=== PATIENT | male | born 1950 | race Caucasian/White ===

== ENCOUNTER 2018-05-06 17:06 | Inpatient (IN) | payer OTHER ==
[2018-05-06] MEDS ORDERED: SODIUM CHLORIDE 0.9% 500 ML 500 ML IV STA (17:24)
[2018-05-06] MEDS ORDERED: PANTOPRAZOLE 40 MG/10 ML VIAL IVP STA (17:24)
--- NOTE | 2018-05-06 17:27 | ED ---
General Adult HPI - General Chief complaint: Dizziness Stated complaint: Dizziness Time Seen by Provider: 05/06/18 17:10 Source: patient, RN notes reviewed Mode of arrival: EMS Limitations: no limitations - History of Present Illness Initial comments: Patient is a pleasant 67-year-old male presenting to the emergency department with lightheadedness. Patient has had some sweating starting since middle of the night. Patient has had that continued throughout the day. Patient does feel lightheaded. Symptoms are worse with exertion. Patient is only able to walk 10 or 15 feet now. No history of similar symptoms previously. Patient did have the taste of some reflux in his mouth last night that just lasted a short period of time. No chest pain. No abdominal pain. No dyspnea. Patient has been experiencing dark stools for the past 24 hours. Patient does drink a couple of alcoholic cocktails at night. Patient is not on blood thinners. Patient does not take NSAIDs. - Related Data Home Medications Medication Instructions Recorded Confirmed Aspirin [[place] Aspirin EC] 81 mg PO DAILY 05/06/18 05/06/18 Atorvastatin [Lipitor] 20 mg PO HS 05/06/18 05/06/18 Previous Rx's Medication Instructions Recorded Nitroglycerin Sl Tabs [Nitrostat] 0.4 mg SUBLINGUAL Q5M PRN #25 tab 04/15/16 amLODIPine [Norvasc] 5 mg PO DAILY #30 tab 04/15/16 Allergies Allergy/AdvReac Type Severity Reaction Status Date / Time No Known Allergies Allergy Verified 04/13/16 14:04 Review of Systems ROS Statement: Those systems with pertinent positive or pertinent negative responses have been documented in the HPI. ROS Other: All systems not noted in ROS Statement are negative. Constitutional: Denies: fever Eyes: Denies: eye pain ENT: Denies: ear pain Respiratory: Denies: cough, dyspnea Cardiovascular: Denies: chest pain, palpitations Endocrine: Reports: fatigue Gastrointestinal: Reports: melena. Denies: abdominal pain Genitourinary: Denies: dysuria Musculoskeletal: Denies: back pain Skin: Denies: rash Neurological: Denies: weakness Past Medical History Past Medical History: No Reported History, Hyperlipidemia, Hypertension Additional Past Medical History / Comment(s): KIDNEY STONES 20 YEARS AGO History of Any Multi-Drug Resistant Organisms: None Reported Past Surgical History: Adenoidectomy, Heart Catheterization With Stent, Tonsillectomy Additional Past Surgical History / Comment(s): DENTAL IMPLANT, DEVIATED SEPTUM, RT INGUINAL HERNIA Past Anesthesia/Blood Transfusion Reactions: No Reported Reaction Past Psychological History: No Psychological Hx Reported Smoking Status: Former smoker Past Alcohol Use History: Occasional Past Drug Use History: None Reported - Past Family History Mother Family Medical History: Cancer Additional Family Medical History / Comment(s): LEUKEMIA Father Family Medical History: Renal Disease Additional Family Medical History / Comment(s): BOWEL AND BLADDER PROBLEMS General Exam Limitations: no limitations General appearance: alert, in no apparent distress Head exam: Present: atraumatic Eye exam: Present: normal appearance, PERRL ENT exam: Present: normal oropharynx Neck exam: Present: normal inspection Respiratory exam: Present: normal lung sounds bilaterally Cardiovascular Exam: Present: tachycardia Expanded Peripheral pulses: 2+: Radial (R), Radial (L), Posterior Tibialis (R), Posterior Tibialis (L) GI/Abdominal exam: Present: soft. 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 [place] 134. QRS 86. QT to 70. QTc 410. Left axis. Normal QRS. No acute ST change. Medical Decision Making - Medical Decision Making Patient reevaluated and resting comfortably in bed. Patient and family updated on results and plan. Heart rate remains around 30 and patient will receive additional fluid bolus. Case discussed with practitioner Roxanne, covering for Dr. Carney, who will admit for hospital call. GI will be placed on consult. - Lab Data Result diagrams: 05/06/18 17:20 05/06/18 17:20 Lab Results 05/06/18 05/06/18 05/06/18 Range/Units 17:20 17:20 17:20 WBC 9.3 (3.8-10.6) k/uL RBC 3.24 L (4.30-5.90) m/uL Hgb 10.7 L (13.0-17.5) gm/dL Hct 31.9 L (39.0-53.0) % MCV 98.4 (80.0-100.0) fL MCH 33.0 (25.0-35.0) pg MCHC 33.6 (31.0-37.0) g/dL RDW 12.8 (11.5-15.5) % Plt Count 242 (150-450) k/uL Neutrophils % 80 % Lymphocytes % 14 % Monocytes % 4 % Eosinophils % 1 % Basophils % 0 % Neutrophils # 7.5 (1.3-7.7) k/uL Lymphocytes # 1.4 (1.0-4.8) k/uL Monocytes # 0.4 (0-1.0) k/uL Eosinophils # 0.1 (0-0.7) k/uL Basophils # 0.0 (0-0.2) k/uL PT (9.0-12.0) sec INR (<1.2) APTT (22.0-30.0) sec Sodium 142 (137-145) mmol/L Potassium 4.6 (3.5-5.1) mmol/L Chloride 113 H (98-107) mmol/L Carbon Dioxide 22 (22-30) mmol/L Anion Gap 7 mmol/L BUN 67 H (9-20) mg/dL Creatinine 0.71 (0.66-1.25) mg/dL Est GFR (CKD-EPI)AfAm >90 (>60 ml/min/1.73 sqM) Est GFR (CKD-EPI)NonAf >90 (>60 ml/min/1.73 sqM) Glucose 144 H (74-99) mg/dL Calcium 8.7 (8.4-10.2) mg/dL Magnesium 2.1 (1.6-2.3) mg/dL Total Bilirubin 0.9 (0.2-1.3) mg/dL AST 15 L (17-59) U/L ALT 20 L (21-72) U/L Alkaline Phosphatase 38 (38-126) U/L Total Creatine Kinase 40 L (55-170) U/L Total Protein 5.3 L (6.3-8.2) g/dL Albumin 3.0 L (3.5-5.0) g/dL Lipase 96 (23-300) U/L Stool Occult Blood (Negative) 05/06/18 05/06/18 Range/Units 17:20 17:20 WBC (3.8-10.6) k/uL RBC (4.30-5.90) m/uL Hgb (13.0-17.5) gm/dL Hct (39.0-53.0) % MCV (80.0-100.0) fL MCH (25.0-35.0) pg MCHC (31.0-37.0) g/dL RDW (11.5-15.5) % Plt Count (150-450) k/uL Neutrophils % % Lymphocytes % % Monocytes % % Eosinophils % % Basophils % % Neutrophils # (1.3-7.7) k/uL Lymphocytes # (1.0-4.8) k/uL Monocytes # (0-1.0) k/uL Eosinophils # (0-0.7) k/uL Basophils # (0-0.2) k/uL PT 11.3 (9.0-12.0) sec INR 1.1 (<1.2) APTT 20.7 L (22.0-30.0) sec Sodium (137-145) mmol/L Potassium (3.5-5.1) mmol/L Chloride (98-107) mmol/L Carbon Dioxide (22-30) mmol/L Anion Gap mmol/L BUN (9-20) mg/dL Creatinine (0.66-1.25) mg/dL Est GFR (CKD-EPI)AfAm (>60 ml/min/1.73 sqM) Est GFR (CKD-EPI)NonAf (>60 ml/min/1.73 sqM) Glucose (74-99) mg/dL Calcium (8.4-10.2) mg/dL Magnesium (1.6-2.3) mg/dL Total Bilirubin (0.2-1.3) mg/dL AST (17-59) U/L ALT (21-72) U/L Alkaline Phosphatase (38-126) U/L Total Creatine Kinase (55-170) U/L Total Protein (6.3-8.2) g/dL Albumin (3.5-5.0) g/dL Lipase (23-300) U/L Stool Occult Blood Positive (Negative) - Radiology Data Radiology results: image reviewed Disposition Clinical Impression: GI hemorrhage Disposition: ADMITTED IP TO THIS HOSP Is patient prescribed a controlled substance at d/c from ED?: No Referrals: Demetrius Foy DO [Primary Care Provider] - 1-2 days Decision Time: 18:18
[2018-05-06 17:47] LABS: Basophils % (A) 0 %; Eosinophils # (A) 0.1 k/uL (0-0.7); Eosinophils % (A) 1 %; HCT 31.9 % (39.0-53.0); HGB 10.7 gm/dL (13.0-17.5); Lymphocytes # (A) 1.4 k/uL (1.0-4.8); Lymphocytes % (A) 14 %; MCHC 33.6 g/dL (31.0-37.0); MCV 98.4 fL (80.0-100.0); Monocytes # (A) 0.4 k/uL (0-1.0); Monocytes % (A) 4 %; Neutrophils # (A) 7.5 k/uL (1.3-7.7); Neutrophils % (A) 80 %; Platelet Count 242 k/uL (150-450); RBC 3.24 m/uL (4.30-5.90); RDW 12.8 % (11.5-15.5); WBC 9.3 k/uL (3.8-10.6)
[2018-05-06 18:06] LABS: Creatine Kinase 40 U/L (55-170)
[2018-05-06 18:07] LABS: INR 1.1 (<1.2); Partial Thromboplastin Time 20.7 sec (22.0-30.0); Prothrombin Time 11.3 sec (9.0-12.0)
[2018-05-06 18:09] LABS: ALT 20 U/L (21-72); AST 15 U/L (17-59); Alkaline Phosphatase 38 U/L (38-126); Anion Gap 7 mmol/L; Blood Urea Nitrogen 67 mg/dL (9-20); Calcium 8.7 mg/dL (8.4-10.2); Carbon Dioxide 22 mmol/L (22-30); Chloride 113 mmol/L (98-107); Glucose 144 mg/dL (74-99); Lipase 96 U/L (23-300); Magnesium 2.1 mg/dL (1.6-2.3); Potassium 4.6 mmol/L (3.5-5.1); Sodium 142 mmol/L (137-145); Total Bilirubin 0.9 mg/dL (0.2-1.3); Total Protein 5.3 g/dL (6.3-8.2)
[2018-05-06] MEDS ORDERED: SODIUM CHLORIDE 0.9% 1,000 ML IV STA (18:16)
[2018-05-06 18:18] LABS: Creatine Kinase MB 0.6 ng/mL (0.0-2.4); Troponin I <0.012 ng/mL (0.000-0.034)
[2018-05-06] MEDS ORDERED: NALOXONE 0.4 MG/ML 1 ML VIAL IV PRN (18:18)
--- NOTE | 2018-05-06 18:45 | XR ---
EXAMINATION TYPE: XR abdomen 1V DATE OF EXAM: 05/06/2018 COMPARISON: NONE HISTORY: GI hemorrhage TECHNIQUE: 2 views supine FINDINGS: There is no sign of intestinal obstruction or pneumoperitoneum. Fecal pattern is normal. Th ere is gas down to the rectum. Lung bases are clear. There are no pathologic calcifications over the kidneys. IMPRESSION: Nonacute abdomen.
--- NOTE | 2018-05-06 18:46 | XR ---
EXAMINATION TYPE: XR chest 2V DATE OF EXAM: 05/06/2018 COMPARISON: 04/13/2016 HISTORY: Dizziness TECHNIQUE: Frontal and lateral views of the chest are obtained. FINDINGS: There is no heart failure. There is some mild linear density in the left lower lobe. There are no hilar masses. Mediastinum is normal. There is no pleural effusion. There are chest leads. IMPRESSION: Minimal atelectasis left lower lobe on the lateral view is new compared to old exam.. No rmal heart.
[2018-05-06] MEDS: SODIUM CHLORIDE 0.9% 1,000 ML IV SCH (21:00)
[2018-05-06 21:48] VITALS: BMI 26.3
[2018-05-06] MEDS: PANTOPRAZOLE 40 MG/10 ML VIAL IV SCH (22:02)
[2018-05-06] MEDS: METOPROLOL TARTRATE 25 MG TAB PO SCH (22:02)
[2018-05-06 23:21] LABS: Basophils % (A) 0 %; Eosinophils % (A) 0 %; HCT 26.1 % (39.0-53.0); Lymphocytes # (A) 1.7 k/uL (1.0-4.8); Lymphocytes % (A) 21 %; MCH 32.9 pg (25.0-35.0); MCHC 33.5 g/dL (31.0-37.0); MCV 98.1 fL (80.0-100.0); Mean Platelet Volume 8.8; Monocytes # (A) 0.4 k/uL (0-1.0); Monocytes % (A) 6 %; Neutrophils # (A) 5.6 k/uL (1.3-7.7); Neutrophils % (A) 71 %; Platelet Count 214 k/uL (150-450); RBC 2.66 m/uL (4.30-5.90); RDW 12.9 % (11.5-15.5); WBC 7.9 k/uL (3.8-10.6)
[2018-05-06 23:36] LABS: HGB 8.7 gm/dL (13.0-17.5)
[2018-05-07] MEDS ORDERED: SODIUM CHLORIDE 0.9% 500 ML 500 ML IV ONE (00:13)
[2018-05-07] MEDS ORDERED: LORazepam 2 MG/ML INJ IV PRN ×3 (00:13)
[2018-05-07] MEDS ORDERED: NITROGLYCERIN SL TABS 0.4 MG TAB SUBLINGUAL PRN (00:45)
[2018-05-07] MEDS ORDERED: TEMAZEPAM 15 MG CAP PO PRN (00:47)
[2018-05-07] MEDS ORDERED: HYDROcodone/APAP 5-325MG 1 EACH TAB PO PRN (00:47)
[2018-05-07] MEDS: SODIUM CHLORIDE 0.9% 1,000 ML IV SCH ×3 (02:20→19:49)
[2018-05-07 06:13] LABS: Basophils % (A) 0 %; Eosinophils # (A) 0.1 k/uL (0-0.7); Eosinophils % (A) 1 %; HCT 24.9 % (39.0-53.0); HGB 8.4 gm/dL (13.0-17.5); Lymphocytes # (A) 1.8 k/uL (1.0-4.8); Lymphocytes % (A) 27 %; MCHC 33.8 g/dL (31.0-37.0); MCV 97.6 fL (80.0-100.0); Monocytes # (A) 0.4 k/uL (0-1.0); Monocytes % (A) 6 %; Neutrophils # (A) 4.4 k/uL (1.3-7.7); Neutrophils % (A) 65 %; Platelet Count 203 k/uL (150-450); RBC 2.55 m/uL (4.30-5.90); RDW 13.2 % (11.5-15.5); WBC 6.9 k/uL (3.8-10.6)
[2018-05-07] MEDS: PANTOPRAZOLE 40 MG/10 ML VIAL IV SCH ×2 (08:24→19:50)
[2018-05-07] MEDS: METOPROLOL TARTRATE 25 MG TAB PO SCH ×2 (08:24→19:50)
--- NOTE | 2018-05-07 09:21 | HP ---
HISTORY AND PHYSICAL DATE OF SERVICE: 05/07/2019 CHIEF COMPLAINT: Dizziness and weakness. HISTORY OF PRESENT ILLNESS: This 67-year-old gentleman with a past medical history of multiple medical problems including hypertension, history of kidney stones, history of CAD and stent being followed by Dr. May in the outpatient setting, also has history of having a couple of cocktails at night. Currently the patient is complaining of progressive dizziness and weakness. The patient came to [facility] and was admitted for further evaluation treatment. Melenic stools also noted. Hemoglobin on admission was 7.7 and currently is 8.7. Patient is also mildly orthostatic also. There is no history of fever, rigors. No headache, loss of consciousness, seizures. Patient also had tachycardia which has subsided at this time. Gastroenterology evaluation in progress and endoscopies have been ordered by Dr. Cobb. There is no history of chest pain, palpitation, shortness of breath. PAST MEDICAL HISTORY: Hypertension, hyperlipidemia, history of kidney stones, history of CAD and stent, dental implant. HOME MEDICATIONS: 1. Norvasc 5 mg daily. 2. Nitrostat 0.4 mg p.r.n. 3. Lipitor 20 mg. 4. Aspirin 81 mg daily. ALLERGIES: None. FAMILY HISTORY: History of cancer, leukemia. SOCIAL HISTORY: Previous history of smoking, alcohol as mentioned. REVIEW OF SYSTEMS: ENT No history of diminished hearing or vision. CARDIOVASCULAR No angina or palpitations. RESPIRATORY No cough, no hemoptysis. GI As mentioned earlier. No dysuria. NERVOUS No numbness or weakness. ALLERGY/IMMUNOLOGY No asthma or hayfever. MUSCULOSKELETAL As mentioned earlier. HEMATOLOGY/ONCOLOGY Negative. ENDOCRINE No history of diabetes or hypothyroidism. SKIN Negative. CONSTITUTIONAL As mentioned earlier. PSYCHIATRIC As mentioned earlier. PHYSICAL EXAMINATION: GENERAL Patient is alert and oriented times three. VITAL SIGNS Pulse is 140, blood pressure 130/61, respirations 18, temperature 97.3, pulse ox 97% on room air. HEENT Conjunctivae pale. Oral mucosa moist. NECK No jugular venous distention. No lymph node enlargement. RESPIRATORY Breath sounds diminished at the bases. No rhonchi, no crackles. HEART S1 and S2, muffled. No S3, S4. ABDOMEN Soft, no tenderness. No mass palpable. No hepatosplenomegaly. No ascites. Bowel sounds present. No guarding, no rigidity. EXTREMITIES No edema, no swelling. NERVOUS Higher functions as mentioned earlier. Moves all 4 limbs. No focal motor or sensory deficit. LYMPHATICS No lymph nodes in neck or axilla. SKIN No ulcer, rash, bleeding. JOINTS No active deformity. LABS: WBC 9.2, hemoglobin 10.7, and 8.7. INR 1.1. Otherwise BUN is 67. Glucose is 144. Albumin is 3. ASSESSMENT: 1. Possible acute upper gastrointestinal bleeding with acute blood loss anemia. Rule out peptic ulcer disease. 2. Hypertension. 3. Hyperlipidemia. 4. Nephrolithiasis. 5. History of CAD and stent. 6. History of MRSA. 7. Nicotine dependence. RECOMMENDATIONS AND DISCUSSION: In this 67-year-old gentleman who presented with multiple complex medical issues, we will monitor the patient closely, continue the current management and symptomatic treatment. I recommend proton pump inhibitors, gastroenterology consultation, serial H and H. If the hemoglobin is less than 8, I would recommend 2 units transfusion. The patient is mildly orthostatic and at this point I would recommend fluid bolus and if the patient is not improving and hemoglobin keeps dropping and there is no evidence of further bleeding, the patient will need to be transferred to ICU with consultation with Dr. Branham. Otherwise, will closely follow with Dr. Cobb, the lining vamper and continue the rest of medications. Cardiology also will be consulted because history of CAD, stent. Overall prognosis is guarded and CIWA protocol also will be recommended and further recommendations to follow. We will hold off aspirin at this time. MMODL / IJN: [id number] /
[2018-05-07] MEDS: THIAMINE 100 MG TAB PO SCH ×2 (12:25→17:42)
--- NOTE | 2018-05-07 14:07 | P.CRDCN ---
History of Present Illness History of present illness: This is Dr. Doherty dictating a consult on this patient The patient was interviewed and examined by me IMPRESSION / ASSESSMENT: Acute GI bleeding with melena Presenting with sweating spells at night while lying down and upon standing up lightheadedness but no true loss of consciousness sofar Hemoglobin 8.4 Twelve-lead ECG shows sinus tachycardia No chest discomfort regular , daily alcohol consumption PLAN: Management of acute anemia secondary to GI bleeding which resolved his symptoms Daily alcohol consumption is to be avoided, binge alcohol drinking is to be avoided HPI 67-year-old male patient presenting with recurrent lightheadedness He's been experiencing dark stools for the last 24 hours. Takes aspirin atorvastatin and amlodipine Past history of hypertension dyslipidemia Past history of coronary angiography with coronary stenting ROS: No fever chills or rigors, no cough, phlegm or expectoration, no nausea, vomiting or diarrhea, no hematuria, dysuria, no musculoskeletal complaints, no strokes or seizures, no skin lesions. EXAMINATION Blood pressures in the normal range Heart sounds are normal no murmurs or gallop. Breath sounds are clear no rhonchi no crackles Abdomen is soft there's no epigastric tenderness Extended is warm no edema REVIEW OF LABS, ECG Twelve-lead ECG shows supraventricular tachycardia possible sinus tachycardia possible atrial tachycardia Hemoglobin 10.7 and then subsequently 8.7 and 8.4 Sodium and potassium are normal Normal troponins Past Medical History Past Medical History: Hyperlipidemia, Hypertension Additional Past Medical History / Comment(s): KIDNEY STONES 20 YEARS AGO History of Any Multi-Drug Resistant Organisms: None Reported Past Surgical History: Adenoidectomy, Heart Catheterization With Stent, Tonsillectomy Additional Past Surgical History / Comment(s): DENTAL IMPLANT, DEVIATED SEPTUM, RT INGUINAL HERNIA Past Anesthesia/Blood Transfusion Reactions: No Reported Reaction Date of Last Stent Placement:: 04/2016 Past Psychological History: No Psychological Hx Reported Additional Psychological History / Comment(s): HE IS RETIRED FROM [employer] AND HAS IN THE PAST WORKED IN [employer] WELL. NO EXPERINCE.PT IS INDEPENDANT WHEN UP. Smoking Status: Former smoker Past Alcohol Use History: Daily Additional Past Alcohol Use History / Comment(s): SMOKED OFF AND ON IN HIS 20'S THEN QUIT. INHIS MID 40'S OCC SMOKED SMALL CIGARS THEN QUIT. PT STATED HE HAS 2 COKTAILS DAILY. Past Drug Use History: None Reported - Past Family History Mother Family Medical History: Cancer Additional Family Medical History / Comment(s): LEUKEMIA Father Family Medical History: Renal Disease Additional Family Medical History / Comment(s): BOWEL AND BLADDER PROBLEMS Medications and Allergies Home Medications Medication Instructions Recorded Confirmed Type Nitroglycerin Sl Tabs [Nitrostat] 0.4 mg SUBLINGUAL Q5M PRN #25 tab 04/15/16 Rx amLODIPine [Norvasc] 5 mg PO DAILY #30 tab 04/15/16 05/06/18 Rx Aspirin [[place] Aspirin EC] 81 mg PO DAILY 05/06/18 05/06/18 History Atorvastatin [Lipitor] 20 mg PO HS 05/06/18 05/06/18 History Allergies Allergy/AdvReac Type Severity Reaction Status Date / Time No Known Allergies Allergy Verified 04/13/16 14:04 Physical Exam Vitals: Vital Signs Temp Pulse Pulse Pulse Resp BP BP 05/07/18 03:40 98.0 F 94 18 05/07/18 00:00 98.2 F 80 18 114/76 05/06/18 21:42 97.3 F L 140 H 18 05/06/18 21:10 97.3 F L 140 H 18 05/06/18 21:01 137 H 18 124/82 05/06/18 20:48 98.7 F 134 H 20 127/86 05/06/18 19:50 98.7 F 126 H 18 144/72 05/06/18 19:00 125 H 22 113/75 05/06/18 18:00 130 H 18 113/79 05/06/18 17:46 137 H 05/06/18 17:35 141 H 18 103/75 05/06/18 17:08 98.2 F 137 H 18 119/84 BP BP BP Pulse Ox 05/07/18 03:40 111/86 99 05/07/18 00:00 108/70 122/84 97 05/06/18 21:42 131/64 97 05/06/18 21:10 131/64 97 05/06/18 21:01 97 05/06/18 20:48 97 05/06/18 19:50 97 05/06/18 19:00 98 05/06/18 18:00 98 05/06/18 17:46 05/06/18 17:35 95 05/06/18 17:08 98 Intake and Output 05/06/18 05/07/18 05/07/18 22:59 06:59 14:59 Output Total 0 Balance 0 Output: Urine 0 Other: # Voids 0 1 Weight 103.4 kg 104.5 kg Results 05/07/18 05:47 05/06/18 17:20 Cardiac Enzymes 05/06/18 05/06/18 Range/Units 17:20 17:20 AST 15 L (17-59) U/L CK-MB (CK-2) 0.6 (0.0-2.4) ng/mL Troponin I <0.012 (0.000-0.034) ng/mL Coagulation 05/06/18 Range/Units 17:20 PT 11.3 (9.0-12.0) sec APTT 20.7 L (22.0-30.0) sec CBC 05/06/18 05/06/18 05/07/18 Range/Units 17:20 23:01 05:47 WBC 9.3 7.9 6.9 (3.8-10.6) k/uL RBC 3.24 L 2.66 L 2.55 L (4.30-5.90) m/uL Hgb 10.7 L 8.7 L D 8.4 L (13.0-17.5) gm/dL Hct 31.9 L 26.1 L 24.9 L (39.0-53.0) % Plt Count 242 214 203 (150-450) k/uL Comprehensive Metabolic Panel 05/06/18 Range/Units 17:20 Sodium 142 (137-145) mmol/L Potassium 4.6 (3.5-5.1) mmol/L Chloride 113 H (98-107) mmol/L Carbon Dioxide 22 (22-30) mmol/L BUN 67 H (9-20) mg/dL Creatinine 0.71 (0.66-1.25) mg/dL Glucose 144 H (74-99) mg/dL Calcium 8.7 (8.4-10.2) mg/dL AST 15 L (17-59) U/L ALT 20 L (21-72) U/L Alkaline Phosphatase 38 (38-126) U/L Total Protein 5.3 L (6.3-8.2) g/dL Albumin 3.0 L (3.5-5.0) g/dL Current Medications Generic Name Dose Route Start Last Admin Trade Name Freq PRN Reason Stop Dose Admin Hydrocodone Bitart/Acetaminophen 1 each 05/07/18 00:47 [place] 5-325 PO Q6HR PRN Pain Atorvastatin Calcium 20 mg 05/07/18 21:00 Lipitor PO HS NICHOLAS Sodium Chloride 1,000 mls @ 125 mls/hr 05/06/18 18:30 05/07/18 02:20 Saline 0.9% IV Not Given .Q8H NICHOLAS Lorazepam 1 mg 05/07/18 00:13 Ativan IV Q2HR PRN CIWA 8 or 9 Lorazepam 1 mg 05/07/18 00:13 Ativan IV Q1HR PRN CIWA 10 to 15 Lorazepam 2 mg 05/07/18 00:13 Ativan IV 05/09/18 00:13 Q10M PRN CIWA 16 or higher Metoprolol Tartrate 25 mg 05/06/18 21:45 05/07/18 08:24 Lopressor PO 25 mg BID NICHOLAS Administration Naloxone HCl 0.2 mg 05/06/18 18:18 Narcan IV Q2M PRN Opioid Reversal Nitroglycerin 0.4 mg 05/07/18 00:45 Nitrostat SUBLINGUAL Q5M PRN Chest Pain Pantoprazole Sodium 40 mg 05/06/18 21:00 05/07/18 08:24 Protonix IV 40 mg BID NICHOLAS Administration Temazepam 15 mg 05/07/18 00:47 Restoril PO HS PRN Insomnia Thiamine HCl 100 mg 05/07/18 12:00 Vitamin B-1 PO BID@1200,1700 NICHOLAS Intake and Output 05/06/18 05/07/18 05/07/18 22:59 06:59 14:59 Output Total 0 Balance 0 Output: Urine 0 Other: # Voids 0 1 Weight 103.4 kg 104.5 kg 05/07/18 05:47 05/06/18 17:20
[2018-05-07 14:42] LABS: Basophils % (A) 0 %; Eosinophils # (A) 0.1 k/uL (0-0.7); Eosinophils % (A) 1 %; HCT 26.1 % (39.0-53.0); HGB 8.7 gm/dL (13.0-17.5); Lymphocytes # (A) 2.6 k/uL (1.0-4.8); Lymphocytes % (A) 27 %; MCH 33.1 pg (25.0-35.0); MCHC 33.2 g/dL (31.0-37.0); MCV 99.6 fL (80.0-100.0); Mean Platelet Volume 7.7; Monocytes # (A) 0.4 k/uL (0-1.0); Monocytes % (A) 4 %; Neutrophils # (A) 6.3 k/uL (1.3-7.7); Neutrophils % (A) 66 %; Platelet Count 232 k/uL (150-450); RBC 2.63 m/uL (4.30-5.90); RDW 13.2 % (11.5-15.5); WBC 9.5 k/uL (3.8-10.6)
[2018-05-07] MEDS ORDERED: LORazepam 2 MG/ML INJ IV STA (14:52)
--- NOTE | 2018-05-07 17:39 | PN ---
PROGRESS NOTE DATE OF SERVICE: 05/07/2018 This 67-year-old gentleman who was admitted with upper GI bleeding, acute blood loss anemia, is being closely monitored. Patient still has complaints of dizziness. The patient is orthostatic drop in systolic blood pressure. The patient was seen by Gastroenterology apparently and endoscopies are being planned. Cardiology has seen the patient. The patient also has significant history of EtOH. The patient also is tremulous. The patient also had early delirium tremens also. PAST MEDICAL HISTORY: Reviewed. REVIEW OF SYSTEMS: Cardio system: As mentioned earlier. GI: As mentioned earlier. no dysuria. Nervous System: As mentioned earlier. CURRENT MEDICATIONS: 1. [place] 5 mg. 2. Lipitor 20 mg. 3. Ativan 1 mg. 4. Lopressor 25 mg p.o. b.i.d. 5. Narcan. 6. Nitrostat 0.4 sublingual p.r.n. 7. Protonix 40 mg IV b.i.d. 8. Restoril 15 mg q.h.s. p.r.n. 9. Vitamin B1 100 mg p.o. b.i.d. PHYSICAL EXAM: Patient is alert, oriented x3, pulse 86, blood pressure 140/70 and falling to 112/76, respiration 18, temperature 97.4, pulse ox 98% on room air. HEENT: Conjunctivae normal. Oral mucosa moist. NECK is no jugular venous distention. No carotid bruit. No lymph node enlargement. CARDIOVASCULAR: S1, S2 muffled. RESPIRATORY: Breath sounds diminished in the bases. Scattered rhonchi and crackles. ABDOMEN: Soft, nontender. No mass palpable. LEGS: No edema. NERVOUS SYSTEM: Higher functions as mentioned earlier. Moves all four extremities. No focal deficits. Lymphatics: No lymph nodes palpable in the neck, axillae or groin. SKIN: No ulcer. No rash. No bleeding. LABS: WBC 7.2, hemoglobin is 8.7. ASSESSMENT: 1. Acute upper gastrointestinal bleeding with acute blood loss anemia rule out peptic ulcer disease or esophageal varices. 2. Hypotension. 3. Orthostatic hypotension. 4. Hyperlipidemia. 5. Nephrolithiasis. 6. History of coronary artery disease stent. 7. History of MRSA. 8. History of nicotine dependence. 9. History of ETOH. 10.Possible early delirium tremens. RECOMMENDATIONS AND DISCUSSION: Recommend to continue current medications. Continue to monitor. Symptomatic treatment. Repeat labs. Continue with CIWA protocol. Monitor blood pressure closely. Continue with beta blockers. Possibly upper endoscopy by Gastroenterology. Otherwise, closely follow with Cardiology. Prognosis guarded because of multiple complex medical issues. I would also recommend fluid boluses for the orthostatic hypotension. MMODL / IJN: [id number] / MTDD
[2018-05-07] MEDS: SODIUM CHLORIDE 0.9% 250 ML IV SCH ×5 (17:50→23:38)
--- NOTE | 2018-05-07 19:41 | P.CONS ---
History of Present Illness - Reason for Consult Consult date: 05/07/18 GI hemorrhage Requesting physician: Lexi Carney - Chief Complaint Lightheadedness - History of Present Illness 67-year-old male with a medical history significant for coronary artery disease status post stent placement in the past and hypertension who presented to the hospital with complaints of lightheadedness. Per the patient he had been feeling lightheaded, weak and fatigued. He also reported that he had had 3-4 dark black bowel movements prior to presentation. He denies any gross blood per rectum. No prior history of peptic ulcer disease or GI bleeding. He does not take a proton pump inhibitor at home. He reports very occasional reflux described as a burning sensation and belching from his chest. He does feel however that this has become more frequent over the past 6 months although being very intermittent. He denies any use of NSAID medications. He denies any previous EGD or colonoscopy. He denies any abdominal pain. On presentation the patient was found to be anemic with a hemoglobin of 10.7 which subsequently fell to 8.7 and was stable. Review of Systems REVIEW OF SYSTEMS: CARDIO: Denies any chest pain or palpitations. PULMONARY: The patient denied any wheezing but did report shortness of breath, worse with exertion. GENITOURINARY: No dysuria or hematuria. MUSCULOSKELETAL: The patient did report feeling weak and fatigued. SKIN: Denies any new rashes or lesions, jaundice or pallor. PSYCHIATRIC: Denies any depression or anxiety. NEUROLOGY: Denies headache, denies any new focal deficits. EARS: No tinnitus, discharge or new hearing loss. NOSE: No discharge or congestion. EYES: No pain in eyes or change in vision. CONSTITUTIONAL: No recent weight loss. No fever, chills, night sweats. Past Medical History Past Medical History: Hyperlipidemia, Hypertension Additional Past Medical History / Comment(s): KIDNEY STONES 20 YEARS AGO History of Any Multi-Drug Resistant Organisms: None Reported Past Surgical History: Adenoidectomy, Heart Catheterization With Stent, Tonsillectomy Additional Past Surgical History / Comment(s): DENTAL IMPLANT, DEVIATED SEPTUM, RT INGUINAL HERNIA Past Anesthesia/Blood Transfusion Reactions: No Reported Reaction Date of Last Stent Placement:: 04/2016 Past Psychological History: No Psychological Hx Reported Additional Psychological History / Comment(s): HE IS RETIRED FROM [employer] AND HAS IN THE PAST WORKED IN [employer]LL. NO EXPERINCE.PT IS INDEPENDANT WHEN UP. Smoking Status: Former smoker Past Alcohol Use History: Daily Additional Past Alcohol Use History / Comment(s): SMOKED OFF AND ON IN HIS 20'S THEN QUIT. INHIS MID 40'S OCC SMOKED SMALL CIGARS THEN QUIT. PT STATED HE HAS 2 COKTAILS DAILY. Past Drug Use History: None Reported - Past Family History Mother Family Medical History: Cancer Additional Family Medical History / Comment(s): LEUKEMIA Father Family Medical History: Renal Disease Additional Family Medical History / Comment(s): BOWEL AND BLADDER PROBLEMS Medications and Allergies Home Medications Medication Instructions Recorded Confirmed Type Nitroglycerin Sl Tabs [Nitrostat] 0.4 mg SUBLINGUAL Q5M PRN #25 tab 04/15/16 Rx amLODIPine [Norvasc] 5 mg PO DAILY #30 tab 04/15/16 05/06/18 Rx Aspirin [[facility]] 81 mg PO DAILY 05/06/18 05/06/18 History Atorvastatin [Lipitor] 20 mg PO HS 05/06/18 05/06/18 History Allergies Allergy/AdvReac Type Severity Reaction Status Date / Time No Known Allergies Allergy Verified 04/13/16 14:04 Physical Exam Vitals: Vital Signs Temp Pulse Pulse Resp BP BP BP 05/07/18 15:51 18 146/70 112/76 05/07/18 15:32 86 18 05/07/18 12:00 97.4 F L 86 18 05/07/18 08:00 97.3 F L 80 18 05/07/18 03:40 98.0 F 94 18 05/07/18 00:00 98.2 F 80 18 114/76 108/70 05/06/18 21:42 97.3 F L 140 H 18 05/06/18 21:10 97.3 F L 140 H 18 05/06/18 21:01 137 H 18 124/82 05/06/18 20:48 98.7 F 134 H 20 127/86 05/06/18 19:50 98.7 F 126 H 18 144/72 BP BP Pulse Ox 05/07/18 15:51 128/76 98 05/07/18 15:32 05/07/18 12:00 127/80 98 05/07/18 08:00 126/78 98 05/07/18 03:40 111/86 99 05/07/18 00:00 122/84 97 05/06/18 21:42 131/64 97 05/06/18 21:10 131/64 97 05/06/18 21:01 97 05/06/18 20:48 97 05/06/18 19:50 97 Intake and Output 05/07/18 05/07/18 05/07/18 06:59 14:59 22:59 Intake Total 0 240 Output Total 600 Balance -600 240 Intake: Oral 0 240 Output: Urine 600 Other: # Voids 1 Weight 104.5 kg On physical examination, patient appears comfortable in no apparent distress. HEAD: Normocephalic, atraumatic. EYES: No scleral icterus. No conjunctival injection. MOUTH: No lesions, tongue midline. NECK: Trachea midline, no gross abnormalities. CHEST: Clear to auscultation with no wheezing or rhonchi appreciated. HEART: Regular rate and rhythm. ABDOMEN: Soft, obese. Bowel sounds are positive. No organomegaly. No guarding or rigidity. EXTREMITIES: No pedal edema. SKIN: No rashes, no jaundice. NEUROLOGIC: Alert and oriented x3. No focal deficits. Results CBC & Chem 7: 05/07/18 14:32 05/06/18 17:20 Labs: Abnormal Lab Results - Last 24 Hours (Table) 05/06/18 05/07/18 05/07/18 Range/Units 23:01 05:47 14:32 RBC 2.66 L 2.55 L 2.63 L (4.30-5.90) m/uL Hgb 8.7 L D 8.4 L 8.7 L (13.0-17.5) gm/dL Hct 26.1 L 24.9 L 26.1 L (39.0-53.0) % Abdominal x-ray: report reviewed (X-ray abdomen significant for nonacute abdomen.) Assessment and Plan (1) GI hemorrhage Narrative/Plan: Vision presenting with complaints of 3-4 episodes of dark black bowel movements with associated fall in hemoglobin, suspicion is for upper GI hemorrhage with differential including peptic ulcer disease, leading AVM, erosive gastritis/ esophagitis or other etiology. Current Visit: Yes Status: Acute Code(s): K92.2 - GASTROINTESTINAL HEMORRHAGE, UNSPECIFIED SNOMED Code(s): 43460642 (2) Anemia, blood loss Current Visit: Yes Status: Acute Code(s): D50.0 - IRON DEFICIENCY ANEMIA SECONDARY TO BLOOD LOSS (CHRONIC) SNOMED Code(s): 986096044 Plan: Supportive care Monitor hemoglobin and transfuse as needed Continue Protonix IV twice a day Okay for diet, nothing by mouth after midnight Plan on upper endoscopy in the morning Patient will need follow-up with gastroenterology to schedule screening colonoscopy Thank you for allowing us to participate in the care of this patient we will continue to follow
[2018-05-07] MEDS: ATORVASTATIN 20 MG TAB PO SCH (19:50)
[2018-05-08 00:29] LABS: Basophils % (A) 0 %; Eosinophils # (A) 0.2 k/uL (0-0.7); Eosinophils % (A) 4 %; HCT 20.4 % (39.0-53.0); Lymphocytes # (A) 1.9 k/uL (1.0-4.8); Lymphocytes % (A) 34 %; MCH 33.3 pg (25.0-35.0); MCHC 33.8 g/dL (31.0-37.0); MCV 98.4 fL (80.0-100.0); Mean Platelet Volume 8.6; Monocytes # (A) 0.3 k/uL (0-1.0); Monocytes % (A) 4 %; Neutrophils # (A) 3.2 k/uL (1.3-7.7); Neutrophils % (A) 56 %; Platelet Count 176 k/uL (150-450); RBC 2.08 m/uL (4.30-5.90); RDW 13.4 % (11.5-15.5); WBC 5.7 k/uL (3.8-10.6)
[2018-05-08 00:41] LABS: HGB 6.9 gm/dL (13.0-17.5)
[2018-05-08] MEDS: SODIUM CHLORIDE 0.9% 1,000 ML IV SCH ×3 (03:38→19:56)
[2018-05-08] MEDS ORDERED: PROPOFOL 10 MG/ML 20 ML VIAL IV ONE (09:45)
[2018-05-08] MEDS ORDERED: LACTATED RINGERS 1,000 ML IV ONE (09:55)
--- NOTE | 2018-05-08 10:25 | P.PCN ---
Date of Procedure: 05/08/18 Description of Procedure: BRIEF HISTORY: 67-year-old male with a medical history significant for coronary artery disease status post stent placement in the past and hypertension who presented to the hospital with complaints of lightheadedness. Per the patient he had been feeling lightheaded, weak and fatigued. He also reported that he had had 3-4 dark black bowel movements prior to presentation. He denies any gross blood per rectum. No prior history of peptic ulcer disease or GI bleeding. He does not take a proton pump inhibitor at home. He reports very occasional reflux described as a burning sensation and belching from his chest. He does feel however that this has become more frequent over the past 6 months although being very intermittent. He denies any use of NSAID medications. He denies any previous EGD or colonoscopy. He denies any abdominal pain. On presentation the patient was found to be anemic with a hemoglobin of 10.7 which subsequently fell to 8.7 and was stable. PROCEDURE PERFORMED: Esophagogastroduodenoscopy with biopsy. PREOPERATIVE DIAGNOSIS: Anemia of acute blood loss, melena. ESTIMATED BLOOD LOSS: Minimal. IV sedation per anesthesia. PROCEDURE: After informed consent was obtained, the patient was brought into the endoscopy unit. IV sedation was administered by Anesthesia under continuous monitoring. Initially the Olympus GIF-190 video endoscope was inserted into the mouth. Esophagus intubated without any difficulty. It was gradually advanced into the stomach and duodenum and carefully examined. The bulb and the second part of the duodenum appeared normal, except for some mild scattered erythema suggestive of duodenitis which was biopsied. The scope at this time was withdrawn to the stomach, adequately insufflated with air, and the mucosa of the antrum, body, cardia and the fundus were examined, with a erythema and superficial erosions in the antrum and body suggestive of moderate gastritis which was biopsied. The scope was then withdrawn into the esophagus. The GE junction was located at 42 cm from the incisors. A 3 cm hiatal hernia was noted. A small nonbleeding ulcer in the distal esophagus was noted possibly suggestive of a Jenniefr-Padron tear with biopsies taken. The esophagus otherwise appeared normal. The patient tolerated the procedure well IMPRESSION: 1. No active bleeding. 2. Mild duodenitis, biopsied. 3. Moderate gastritis, biopsied. 4. Nonbleeding distal esophageal ulcer, biopsied. 5. Hiatal hernia. RECOMMENDATIONS: The findings of this examination were discussed with the patient. Continue Protonix 40 mg by mouth twice daily. Continue to monitor hemoglobin. Okay for diet. Follow up with gastroenterology in one to 2 weeks for scheduling of repeat upper endoscopy given findings on EGD. Await pathology from biopsies. Patient is okay for discharge when hemoglobin stabilizes and symptoms are improved.
[2018-05-08] MEDS: PANTOPRAZOLE 40 MG/10 ML VIAL IV SCH ×2 (10:43→19:56)
[2018-05-08] MEDS: METOPROLOL TARTRATE 25 MG TAB PO SCH ×2 (10:43→19:56)
[2018-05-08 11:15] LABS: Basophils % (A) 0 %; Eosinophils # (A) 0.2 k/uL (0-0.7); Eosinophils % (A) 3 %; HCT 27.2 % (39.0-53.0); Lymphocytes # (A) 1.2 k/uL (1.0-4.8); Lymphocytes % (A) 23 %; MCHC 34.2 g/dL (31.0-37.0); MCV 96.5 fL (80.0-100.0); Mean Platelet Volume 7.5; Monocytes # (A) 0.2 k/uL (0-1.0); Monocytes % (A) 4 %; Neutrophils # (A) 3.7 k/uL (1.3-7.7); Neutrophils % (A) 68 %; Platelet Count 194 k/uL (150-450); RBC 2.82 m/uL (4.30-5.90); WBC 5.4 k/uL (3.8-10.6)
[2018-05-08 11:23] LABS: Anion Gap 1 mmol/L; Blood Urea Nitrogen 16 mg/dL (9-20); Carbon Dioxide 28 mmol/L (22-30); Chloride 112 mmol/L (98-107); Glucose 103 mg/dL (74-99); HGB 9.3 gm/dL (13.0-17.5); Potassium 4.2 mmol/L (3.5-5.1); Sodium 141 mmol/L (137-145)
[2018-05-08] MEDS: THIAMINE 100 MG TAB PO SCH ×2 (17:50→18:05)
[2018-05-08 17:51] LABS: Basophils % (A) 0 %; Eosinophils # (A) 0.2 k/uL (0-0.7); Eosinophils % (A) 4 %; HCT 25.1 % (39.0-53.0); HGB 8.6 gm/dL (13.0-17.5); Lymphocytes # (A) 1.6 k/uL (1.0-4.8); Lymphocytes % (A) 27 %; MCHC 34.3 g/dL (31.0-37.0); MCV 96.1 fL (80.0-100.0); Mean Platelet Volume 7.7; Monocytes # (A) 0.4 k/uL (0-1.0); Monocytes % (A) 7 %; Neutrophils # (A) 3.9 k/uL (1.3-7.7); Neutrophils % (A) 62 %; Platelet Count 196 k/uL (150-450); RBC 2.61 m/uL (4.30-5.90); RDW 14.1 % (11.5-15.5); WBC 6.2 k/uL (3.8-10.6)
[2018-05-08] MEDS: ATORVASTATIN 20 MG TAB PO SCH (19:56)
[2018-05-08 23:49] LABS: Basophils % (A) 0 %; Eosinophils # (A) 0.3 k/uL (0-0.7); Eosinophils % (A) 5 %; HCT 23.5 % (39.0-53.0); HGB 7.9 gm/dL (13.0-17.5); Lymphocytes # (A) 1.9 k/uL (1.0-4.8); Lymphocytes % (A) 33 %; MCH 32.3 pg (25.0-35.0); MCHC 33.5 g/dL (31.0-37.0); MCV 96.5 fL (80.0-100.0); Mean Platelet Volume 7.8; Monocytes # (A) 0.3 k/uL (0-1.0); Monocytes % (A) 5 %; Neutrophils # (A) 3.2 k/uL (1.3-7.7); Neutrophils % (A) 56 %; Platelet Count 175 k/uL (150-450); RBC 2.44 m/uL (4.30-5.90); RDW 14.3 % (11.5-15.5); WBC 5.7 k/uL (3.8-10.6)
[2018-05-09] MEDS: SODIUM CHLORIDE 0.9% 1,000 ML IV SCH ×2 (04:23→11:37)
[2018-05-09 06:49] LABS: Basophils % (A) 0 %; Eosinophils # (A) 0.3 k/uL (0-0.7); Eosinophils % (A) 5 %; HCT 26.7 % (39.0-53.0); HGB 8.9 gm/dL (13.0-17.5); Lymphocytes # (A) 1.4 k/uL (1.0-4.8); Lymphocytes % (A) 26 %; MCHC 33.5 g/dL (31.0-37.0); MCV 98.4 fL (80.0-100.0); Mean Platelet Volume 7.9; Monocytes # (A) 0.2 k/uL (0-1.0); Monocytes % (A) 4 %; Neutrophils # (A) 3.4 k/uL (1.3-7.7); Neutrophils % (A) 63 %; Platelet Count 206 k/uL (150-450); RBC 2.71 m/uL (4.30-5.90); RDW 14.3 % (11.5-15.5); WBC 5.5 k/uL (3.8-10.6)
[2018-05-09 07:10] LABS: Anion Gap 3 mmol/L; Blood Urea Nitrogen 10 mg/dL (9-20); Calcium 8.3 mg/dL (8.4-10.2); Carbon Dioxide 29 mmol/L (22-30); Chloride 109 mmol/L (98-107); Glucose 100 mg/dL (74-99); Potassium 4.4 mmol/L (3.5-5.1); Sodium 141 mmol/L (137-145)
[2018-05-09 09:04] VITALS: TEMP 98.1
[2018-05-09] MEDS: METOPROLOL TARTRATE 25 MG TAB PO SCH (09:05)
[2018-05-09] MEDS: PANTOPRAZOLE 40 MG/10 ML VIAL IV SCH (09:05)
[2018-05-09] MEDS: THIAMINE 100 MG TAB PO SCH (11:35)
[2018-05-09 13:08] VITALS: BP 123/72; PULSE 65; RESP 18
[2018-05-09 13:16] LABS: Basophils % (A) 0 %; Eosinophils # (A) 0.2 k/uL (0-0.7); Eosinophils % (A) 3 %; HCT 27.3 % (39.0-53.0); Lymphocytes # (A) 1.6 k/uL (1.0-4.8); Lymphocytes % (A) 29 %; MCH 32.4 pg (25.0-35.0); MCHC 32.9 g/dL (31.0-37.0); MCV 98.5 fL (80.0-100.0); Mean Platelet Volume 7.4; Monocytes # (A) 0.3 k/uL (0-1.0); Monocytes % (A) 5 %; Neutrophils # (A) 3.3 k/uL (1.3-7.7); Neutrophils % (A) 61 %; Platelet Count 218 k/uL (150-450); RBC 2.77 m/uL (4.30-5.90); RDW 14.7 % (11.5-15.5); WBC 5.4 k/uL (3.8-10.6)
--- NOTE | 2018-05-10 08:30 | DS ---
DISCHARGE SUMMARY DATE OF SERVICE: 05/09/2018 FINAL DIAGNOSES: 1. Acute upper gastrointestinal bleeding with acute blood loss anemia possibly secondary to distal esophageal ulcer. 2. Mild gastritis and duodenitis. 3. Hiatal hernia. 4. Orthostatic hypotension, improved. 5. Hyperlipidemia. 6. Nephrolithiasis. 7. History of coronary artery disease, stent. 8. History of methicillin-resistant Staphylococcus aureus. 9. History of nicotine dependence. 10.History of EtOH. 11.Possibly early delirium tremens. DISCHARGE DISPOSITION: The patient will be discharged in stable condition with guarded prognosis. HISTORY OF PRESENT ILLNESS: This 67-year-old gentleman with the past medical history of multiple medical problems admitted with acute upper GI bleeding. The patient monitor closely. The patient improved significantly. EGD done by Dr. Osman showed multiple findings as listed above. Please refer to Dr. Osman's notes for further details. With the symptomatic treatment, patient was significantly and currently the hemoglobin is 9 and stable. The patient able to tolerate diet. On exam, vitals are stable. CARDIOVASCULAR: S1, S2, muffled. ABDOMEN: Soft. NERVOUS SYSTEM: No focal deficits. DISCHARGE ADVICE: 1. Diet is cardiac diet. 2. Activity limited until followup. 3. Follow up with Dr. Demetrius Dillon in 2 to 3 days. 4. Follow up with Dr. Osman as advised. 5. No NSAIDs. 6. No alcohol. Medications are: 1. Lipitor 20 mg at bedtime. 2. Lopressor 25 mg p.o. b.i.d. 3. Nitroglycerin 0.4 mg sublingual p.r.n. 4. Protonix 40 mg p.o. b.i.d. 5. Carafate 1 gram q.a.c. and at bedtime. 6. Thiamine 100 mg p.o. daily. Once again, the patient will be discharged in a stable condition with guarded prognosis. MMODL / IJN: [id number] /
--- NOTE | 2018-05-10 20:48 | P.PN ---
Subjective Progress Note Date: 05/08/18 Progress note being dictated for Dr. Carney. Interval history: This a 67-year-old gentleman admitted with possible acute upper GI bleed with acute blood loss anemia, ruling out peptic ulcer disease and multiple other medical issues. Hemoglobin 7.9. Aspirin currently on hold. Received fluid bolus for mild orthostatic hypotension yesterday. Black stools earlier this morning. Evaluated by GI, underwent EGD, reporting no active bleeding, mild duodenitis, moderate gastritis, nonbleeding distal esophageal ulcer, hiatal hernia. Tolerating clear liquids with no nausea vomiting or diarrhea. Denies chest pain, palpitations or increasing shortness of breath. Objective - Vital Signs Vital signs: Vital Signs Temp 98.0 F 05/08/18 16:00 Pulse 84 05/08/18 16:00 Resp 16 05/08/18 16:00 BP 145/75 05/08/18 16:00 Pulse Ox 97 05/08/18 16:00 Intake & Output 05/08/18 05/08/18 05/09/18 06:59 18:59 06:59 Intake Total 935 1010 Output Total 250 Balance 935 760 Weight 107 kg Intake: IV 300 Intake, IV Titration 625 Amount Sodium Chloride 0.9% 1, 625 000 ml @ 125 mls/hr IV . Q8H [facility] Rx#:[id number] Oral 400 Blood Product 310 310 Rc As-1 Unit 310 [id number] Rc Pheresis 2 As3 Unit 0 310 [id number] Output: Urine 250 Other: # Voids 1 - Exam PHYSICAL EXAM: VITAL SIGNS: As above GENERAL: Sitting up in bed, no acute distress HEENT: Conjunctivae normal. eyes normal. Oral mucosa moist NECK: No JVD. No thyroid enlargement. No LNs CARDIOVASCULAR: S1, S2 muffled. No murmur RESPIRATION: Breath sounds diminished in the bases. No rhonchi or crackles. ABDOMEN: Soft, nontender . No guarding. no masses palpable. Bowel sounds heard. LEGS: No edema. no swelling PSYCHIATRY: Alert and oriented -3, mood and affect normal. NERVOUS SYSTEM: Cranial N 2-12 grossly normal. Moves all 4 limbs. Diffuse weakness No focal deficits. - Labs CBC & Chem 7: 05/09/18 12:35 05/09/18 06:13 Labs: Abnormal Lab Results - Last 24 Hours (Table) 05/06/18 05/08/18 05/08/18 Range/Units 17:20 00:08 10:51 RBC 2.08 L 2.82 L (4.30-5.90) m/uL Hgb 6.9 L* D 9.3 L D (13.0-17.5) gm/dL Hct 20.4 L 27.2 L (39.0-53.0) % Chloride (98-107) mmol/L Creatinine (0.66-1.25) mg/dL Glucose (74-99) mg/dL Calcium (8.4-10.2) mg/dL Crossmatch See Detail 05/08/18 05/08/18 Range/Units 10:51 17:13 RBC 2.61 L (4.30-5.90) m/uL Hgb 8.6 L (13.0-17.5) gm/dL Hct 25.1 L (39.0-53.0) % Chloride 112 H (98-107) mmol/L Creatinine 0.65 L (0.66-1.25) mg/dL Glucose 103 H (74-99) mg/dL Calcium 8.0 L (8.4-10.2) mg/dL Crossmatch Assessment and Plan Assessment: -. Acute upper GI bleed with acute blood loss anemia, possibly secondary to distal esophageal ulcer -Moderate gastritis and mild duodenitis -Hiatal hernia -Orthostatic hypotension, improved -History of EtOH, possible early DTs -.CAD, history of stent -History of nicotine dependence Plan: Continue on current medication regime ,monitoring and symptomatic treatment. Maintain PPI twice a day. Diet advanced as per GI. Monitor closely overnight. Close monitoring of hemoglobin, electrolytes with repeat labs ordered for a.m. discharge planning in progress for tomorrow. The impression and plan of care has been dictated as directed. : I performed a history and examination of this patient, discussed the same with the dictator. I agree with the dictator's note ,documented as a scribe. Any additional findings or plans will be noted.
== END 2018-05-09 16:00 | disposition home or self-care (01) | DRG 381 ==
LOC: EC 17:06 → 3SCARD 18:18
PROVIDERS: ADMIT Hospitalist; ATTEND Hospitalist
PROC: 0DB78ZX Excision of Stomach, Pylorus, Via Natural or Artificial Opening Endoscopic, Diagnostic (ICD-10-PCS; 2018-05-08)
PROC: 0DB58ZX Excision of Esophagus, Via Natural or Artificial Opening Endoscopic, Diagnostic (ICD-10-PCS; 2018-05-08)
PROC: 0DB98ZX Excision of Duodenum, Via Natural or Artificial Opening Endoscopic, Diagnostic (ICD-10-PCS; principal; 2018-05-08 09:30)
DX: K22.11 Ulcer of esophagus with bleeding (principal); D62 Acute posthemorrhagic anemia; F10.231 Alcohol dependence with withdrawal delirium; I47.1 Supraventricular tachycardia; K44.9 Diaphragmatic hernia without obstruction or gangrene; E78.5 Hyperlipidemia, unspecified; Z87.891 Personal history of nicotine dependence; I10 Essential (primary) hypertension; I25.10 Atherosclerotic heart disease of native coronary artery without angina pectoris; I95.1 Orthostatic hypotension; K21.9 Gastro-esophageal reflux disease without esophagitis; K29.70 Gastritis, unspecified, without bleeding; K29.80 Duodenitis without bleeding; Z87.442 Personal history of urinary calculi; Z79.82 Long term (current) use of aspirin; Z79.899 Other long term (current) drug therapy; Z80.6 Family history of leukemia; Z86.14 Personal history of Methicillin resistant Staphylococcus aureus infection; Z95.5 Presence of coronary angioplasty implant and graft; Z83.79 Family history of other diseases of the digestive system
CPT/HCPCS: 36415; 43239; 71046; 74018; 80048; 80053; 82272; 82550; 82553; 83690; 83735; 84484; 85025; 85610; 85730; 86850; 86900; 86901; 86920; 88305; 88312; 96361; 96374; 99285

== ENCOUNTER 2019-01-02 16:31 | Inpatient (IN) | payer MEDICARE, OTHER ==
[2019-01-02] MEDS ORDERED: METOPROLOL TARTRATE 25 MG TAB PO STA ×2 (18:25→20:16)
[2019-01-02] MEDS ORDERED: LABETALOL 5 MG/ML VIAL MDV IVP STA ×2 (18:25→20:16)
--- NOTE | 2019-01-02 18:30 | ED ---
General Adult HPI - General Chief complaint: Recheck/Abnormal Lab/Rx Stated complaint: HYPERTENSION Time Seen by Provider: 01/02/19 17:57 Source: patient, RN notes reviewed Mode of arrival: ambulatory Limitations: no limitations - History of Present Illness Initial comments: Patient is a pleasant 68-year-old male presenting to the emergency department [facility] concerns for hypertension. Patient states he went to [facility] today to fruit or nut picker his prescription and checked his blood pressure. Blood pressure was approximately 230/110. Patient came to the emergency department and blood pressure still was high. Patient is symptom-free at this time. Patient does have history of hypertension, last blood pressure check was around 5 months ago. No recent changes in medications. Patient does admit that he occasionally will feel short of breath and sweaty with exertion. Other times he does not have this problem. No dyspnea or sweating at this time. Patient denies having any chest discomfort. No nausea or vomiting. - Related Data Home Medications Medication Instructions Recorded Confirmed Metoprolol Tartrate [Lopressor] 25 mg PO BID-W/MEALS 01/02/19 01/02/19 Pantoprazole [Protonix] 40 mg PO BID-W/MEALS 01/02/19 01/02/19 Allergies Allergy/AdvReac Type Severity Reaction Status Date / Time No Known Allergies Allergy Verified 01/02/19 17:15 Review of Systems ROS Statement: Those systems with pertinent positive or pertinent negative responses have been documented in the HPI. ROS Other: All systems not noted in ROS Statement are negative. Constitutional: Denies: fever Eyes: Denies: eye pain ENT: Denies: ear pain Respiratory: Reports: as per HPI. Denies: cough Cardiovascular: Denies: chest pain Endocrine: Denies: fatigue Gastrointestinal: Denies: nausea Genitourinary: Denies: dysuria Musculoskeletal: Denies: back pain Skin: Denies: rash Neurological: Denies: headache Past Medical History Past Medical History: Hyperlipidemia, Hypertension Additional Past Medical History / Comment(s): KIDNEY STONES 20 YEARS AGO, bleeding ulcer History of Any Multi-Drug Resistant Organisms: None Reported Past Surgical History: Adenoidectomy, Heart Catheterization With Stent, Tonsillectomy Additional Past Surgical History / Comment(s): DENTAL IMPLANT, DEVIATED SEPTUM, RT INGUINAL HERNIA Past Anesthesia/Blood Transfusion Reactions: No Reported Reaction Date of Last Stent Placement:: 04/2016 Past Psychological History: No Psychological Hx Reported Smoking Status: Former smoker Past Alcohol Use History: Daily Past Drug Use History: None Reported - Past Family History Mother Family Medical History: Cancer Additional Family Medical History / Comment(s): LEUKEMIA Father Family Medical History: Renal Disease Additional Family Medical History / Comment(s): BOWEL AND BLADDER PROBLEMS General Exam Limitations: no limitations General appearance: alert, in no apparent distress Head exam: Present: atraumatic Eye exam: Present: normal appearance, PERRL, EOMI ENT exam: Present: normal oropharynx Neck exam: Present: normal inspection Respiratory exam: Present: normal lung sounds bilaterally. Absent: chest wall tenderness Cardiovascular Exam: Present: regular rate, normal rhythm Expanded Peripheral pulses: 2+: Radial (R), Radial (L), Dorsalis Pedis (R), Dorsalis Pedis (L) GI/Abdominal exam: Present: soft. Absent: tenderness Extremities exam: Present: normal inspection. Absent: pedal edema, calf tenderness Neurological exam: Present: alert, oriented X3. Absent: motor sensory deficit Psychiatric exam: Present: normal affect, normal mood Skin exam: Present: normal color Course Vital Signs 01/02/19 01/02/19 01/02/19 17:11 18:11 19:39 Temperature 97.8 F Pulse Rate 60 62 75 Respiratory 16 17 Rate Blood Pressure 225/137 188/120 178/117 O2 Sat by Pulse 97 95 96 Oximetry EKG Findings - EKG Comments: EKG Findings:: Sinus bradycardia 58. UT 190. QRS 96. QT 422. QTC 414. Left axis. Normal QRS. No acute ST change. Medical Decision Making - Medical Decision Making Patient reevaluated and remained symptom-free. Blood pressure remains high. Additional blood pressure medication order. Patient and family updated on results and plan. Case was discussed in detail with Dr. Rodriguez, who will admit covering for Dr. Dillon. Cardiology will be placed on consult for hypertension as well as exertional dyspnea. - Lab Data Result diagrams: 01/02/19 18:45 01/02/19 18:45 Lab Results 01/02/19 01/02/19 01/02/19 Range/Units 18:45 18:45 18:45 WBC 6.0 (3.8-10.6) k/uL RBC 4.77 (4.30-5.90) m/uL Hgb 15.4 (13.0-17.5) gm/dL Hct 45.9 (39.0-53.0) % MCV 96.2 (80.0-100.0) fL MCH 32.2 (25.0-35.0) pg MCHC 33.4 (31.0-37.0) g/dL RDW 14.1 (11.5-15.5) % Plt Count 229 (150-450) k/uL Neutrophils % 60 % Lymphocytes % 26 % Monocytes % 7 % Eosinophils % 4 % Basophils % 1 % Neutrophils # 3.6 (1.3-7.7) k/uL Lymphocytes # 1.6 (1.0-4.8) k/uL Monocytes # 0.4 (0-1.0) k/uL Eosinophils # 0.3 (0-0.7) k/uL Basophils # 0.0 (0-0.2) k/uL PT 11.1 (9.0-12.0) sec INR 1.0 (<1.2) APTT 25.5 (22.0-30.0) sec Sodium 139 (137-145) mmol/L Potassium 4.1 (3.5-5.1) mmol/L Chloride 104 (98-107) mmol/L Carbon Dioxide 28 (22-30) mmol/L Anion Gap 7 mmol/L BUN 18 (9-20) mg/dL Creatinine 0.85 (0.66-1.25) mg/dL Est GFR (CKD-EPI)AfAm >90 (>60 ml/min/1.73 sqM) Est GFR (CKD-EPI)NonAf >90 (>60 ml/min/1.73 sqM) Glucose 95 (74-99) mg/dL Calcium 9.3 (8.4-10.2) mg/dL Magnesium 2.3 (1.6-2.3) mg/dL Total Bilirubin 1.3 (0.2-1.3) mg/dL AST 26 (17-59) U/L ALT 20 L (21-72) U/L Alkaline Phosphatase 71 (38-126) U/L Creatine Kinase 89 (55-170) U/L Troponin I (0.000-0.034) ng/mL Total Protein 7.3 (6.3-8.2) g/dL Albumin 4.3 (3.5-5.0) g/dL Urine Color Urine Appearance (Clear) Urine pH (5.0-8.0) Ur Specific [place] (1.001-1.035) Urine Protein (Negative) Urine Glucose (UA) (Negative) Urine Ketones (Negative) Urine Blood (Negative) Urine Nitrite (Negative) Urine Bilirubin (Negative) Urine Urobilinogen (<2.0) mg/dL Ur Leukocyte Esterase (Negative) 01/02/19 01/02/19 Range/Units 18:45 18:45 WBC (3.8-10.6) k/uL RBC (4.30-5.90) m/uL Hgb (13.0-17.5) gm/dL Hct (39.0-53.0) % MCV (80.0-100.0) fL MCH (25.0-35.0) pg MCHC (31.0-37.0) g/dL RDW (11.5-15.5) % Plt Count (150-450) k/uL Neutrophils % % Lymphocytes % % Monocytes % % Eosinophils % % Basophils % % Neutrophils # (1.3-7.7) k/uL Lymphocytes # (1.0-4.8) k/uL Monocytes # (0-1.0) k/uL Eosinophils # (0-0.7) k/uL Basophils # (0-0.2) k/uL PT (9.0-12.0) sec INR (<1.2) APTT (22.0-30.0) sec Sodium (137-145) mmol/L Potassium (3.5-5.1) mmol/L Chloride (98-107) mmol/L Carbon Dioxide (22-30) mmol/L Anion Gap mmol/L BUN (9-20) mg/dL Creatinine (0.66-1.25) mg/dL Est GFR (CKD-EPI)AfAm (>60 ml/min/1.73 sqM) Est GFR (CKD-EPI)NonAf (>60 ml/min/1.73 sqM) Glucose (74-99) mg/dL Calcium (8.4-10.2) mg/dL Magnesium (1.6-2.3) mg/dL Total Bilirubin (0.2-1.3) mg/dL AST (17-59) U/L ALT (21-72) U/L Alkaline Phosphatase (38-126) U/L Creatine Kinase (55-170) U/L Troponin I <0.012 (0.000-0.034) ng/mL Total Protein (6.3-8.2) g/dL Albumin (3.5-5.0) g/dL Urine Color Yellow Urine Appearance Clear (Clear) Urine pH 6.5 (5.0-8.0) Ur Specific [place] 1.020 (1.001-1.035) Urine Protein Negative (Negative) Urine Glucose (UA) Negative (Negative) Urine Ketones Negative (Negative) Urine Blood Negative (Negative) Urine Nitrite Negative (Negative) Urine Bilirubin Negative (Negative) Urine Urobilinogen <2.0 (<2.0) mg/dL Ur Leukocyte Esterase Negative (Negative) - Radiology Data Radiology results: image reviewed (Chest x-ray shows no acute process) Disposition Clinical Impression: Hypertensive urgency, Exertional dyspnea Disposition: ADMITTED IP TO THIS HOSP Is patient prescribed a controlled substance at d/c from ED?: No Referrals: Demetrius Foy DO [Primary Care Provider] - 1-2 days Decision Time: 20:47
[2019-01-02 19:00] LABS: Appearance,Urine Clear (Clear); Basophils % (A) 1 %; Bilirubin,Urine Negative (Negative); Blood,Urine Negative (Negative); Color,Urine Yellow; Eosinophils # (A) 0.3 k/uL (0-0.7); Eosinophils % (A) 4 %; Glucose,Urine (UA) Negative (Negative); HCT 45.9 % (39.0-53.0); HGB 15.4 gm/dL (13.0-17.5); Ketones,Urine Negative (Negative); Leukocyte Esterase,Urine Negative (Negative); Lymphocytes # (A) 1.6 k/uL (1.0-4.8); Lymphocytes % (A) 26 %; MCH 32.2 pg (25.0-35.0); MCHC 33.4 g/dL (31.0-37.0); MCV 96.2 fL (80.0-100.0); Mean Platelet Volume 7.2; Monocytes # (A) 0.4 k/uL (0-1.0); Monocytes % (A) 7 %; Neutrophils # (A) 3.6 k/uL (1.3-7.7); Neutrophils % (A) 60 %; Nitrite,Urine Negative (Negative); PH, Urine 6.5 (5.0-8.0); Platelet Count 229 k/uL (150-450); Protein,Urine Negative (Negative); RBC 4.77 m/uL (4.30-5.90); RDW 14.1 % (11.5-15.5); Urobilinogen,Urine <2.0 mg/dL (<2.0)
[2019-01-02 19:08] LABS: Partial Thromboplastin Time 25.5 sec (22.0-30.0); Prothrombin Time 11.1 sec (9.0-12.0)
[2019-01-02 19:09] LABS: ALT 20 U/L (21-72); AST 26 U/L (17-59); African American GFR (CKD) >90 (>60 ml/min/1.73 sqM); Albumin 4.3 g/dL (3.5-5.0); Alkaline Phosphatase 71 U/L (38-126); Anion Gap 7 mmol/L; Blood Urea Nitrogen 18 mg/dL (9-20); Calcium 9.3 mg/dL (8.4-10.2); Carbon Dioxide 28 mmol/L (22-30); Chloride 104 mmol/L (98-107); Creatine Kinase 89 U/L (55-170); Glucose 95 mg/dL (74-99); Magnesium 2.3 mg/dL (1.6-2.3); Potassium 4.1 mmol/L (3.5-5.1); Sodium 139 mmol/L (137-145); Total Bilirubin 1.3 mg/dL (0.2-1.3); Total Protein 7.3 g/dL (6.3-8.2)
--- NOTE | 2019-01-02 20:17 | XR ---
EXAMINATION: XR chest 2V DATE AND TIME: 01/02/2019 7:26 PM CLINICAL INDICATION: PHH; htn TECHNIQUE: Departmental protocol COMPARISON: 05/06/2018 FINDINGS: The lungs are clear. The pleural spaces are negative. The cardiac silhouette is borderline enlarged, unchanged. Tortuous thoracic aorta redemonstrated. The skeletal structures and soft tissues are negative for acute findings. IMPRESSION: NO ACUTE PROCESS.
[2019-01-02] MEDS ORDERED: hydrALAZINE HCL 20 MG/ML 1 ML VIAL IVP PRN (20:47)
[2019-01-02] MEDS ORDERED: NALOXONE 0.4 MG/ML 1 ML VIAL IV PRN (20:49)
[2019-01-02] MEDS ORDERED: SODIUM CHLORIDE 0.9% 1,000 ML IV SCH (21:00)
[2019-01-02] MEDS: METOPROLOL TARTRATE 50 MG TAB PO SCH (21:44)
[2019-01-03 01:03] VITALS: BMI 27.5
[2019-01-03] MEDS: PANTOPRAZOLE 40 MG TABLET PO SCH ×2 (06:20→17:00)
[2019-01-03] MEDS: METOPROLOL TARTRATE 50 MG TAB PO SCH (09:02)
[2019-01-03 09:12] VITALS: RESP 17; TEMP 98
--- NOTE | 2019-01-03 09:52 | P.CRDCN ---
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 Bolden in the office. He should also had a hospital admission in April 2018 with a GI bleed, he underwent an EGD at that time which did not reveal any active bleeding, mild duodenitis which was biopsied, moderate gastritis, nonbleeding distal esophageal ulcer which was biopsied and evidence of a hiatal hernia. He was treated at that time with Protonix twice a day. At the time of that discharge, patient was not discharged home on any aspirin or Plavix, he was advised not to take nonsteroidals, and was placed on Protonix. The patient apparently had gone to the pharmacy to turkey picker some prescriptions, he checked his blood pressure which was noted to be significantly elevated, and he came to the emergency room for further evaluation. Overall the patient states that he has been feeling well, intermittently he notices himself to feel extremely flushed and feels mildly short of breath. He denies any chest discomfort, patient is quite physically active overall, he states that recently he shoveled several tonnes of heavy material with no symptoms at all. Chest x-ray on presentation here did not reveal any acute process. EKG showed a sinus bradycardia with no acute changes noted. I pressure on arrival here 225/137, 97% on room air oxygenation heart rate was in the 60s, he's been afebrile. Blood pressure this morning 152/90 with a heart rate in the 60s, 96% on room air. White blood cell count 6.0, hemoglobin 15.4, platelet count 229. Sodium 139, potassium 4.1, BUN 18 and creatinine 0.8. Magnesium 2.3. Troponin 0.012. Patient had been taking Protonix and Lopressor at home. Patient has not been on any on any aspirin at home, has not been taking his statins either. Past Medical History Past Medical History: Hyperlipidemia, Hypertension Additional Past Medical History / Comment(s): KIDNEY STONES 20 YEARS AGO, bleeding ulcer History of Any Multi-Drug Resistant Organisms: None Reported Past Surgical History: Adenoidectomy, Heart Catheterization With Stent, Tonsillectomy Additional Past Surgical History / Comment(s): DENTAL IMPLANT, DEVIATED SEPTUM, RT INGUINAL HERNIA Past Anesthesia/Blood Transfusion Reactions: No Reported Reaction Date of Last Stent Placement:: 04/2016 Past Psychological History: No Psychological Hx Reported Additional Psychological History / Comment(s): HE IS RETIRED FROM [email or web address] AND HAS IN THE PAST WORKED IN [employer] WELL. NO EXPERINCE.PT IS INDEPENDANT WHEN UP. Smoking Status: Former smoker Past Alcohol Use History: Daily Additional Past Alcohol Use History / Comment(s): SMOKED OFF AND ON IN HIS 20'S THEN QUIT. INHIS MID 40'S OCC SMOKED SMALL CIGARS THEN QUIT. PT STATED HE HAS 2 COKTAILS DAILY. Past Drug Use History: None Reported - Past Family History Mother Family Medical History: Cancer Additional Family Medical History / Comment(s): LEUKEMIA Father Family Medical History: Renal Disease Additional Family Medical History / Comment(s): BOWEL AND BLADDER PROBLEMS Medications and Allergies Home Medications Medication Instructions Recorded Confirmed Type Metoprolol Tartrate [Lopressor] 25 mg PO BID-W/MEALS 01/02/19 01/02/19 History Pantoprazole [Protonix] 40 mg PO BID-W/MEALS 01/02/19 01/02/19 History Allergies Allergy/AdvReac Type Severity Reaction Status Date / Time No Known Allergies Allergy Verified 01/02/19 17:15 Physical Exam Vitals: Vital Signs Temp Pulse Pulse Resp BP BP Pulse Ox 01/03/19 08:20 98 F 67 17 153/90 96 01/03/19 04:00 98.0 F 69 17 160/94 95 01/03/19 00:03 98.6 F 63 18 169/107 95 01/03/19 00:00 63 18 01/02/19 23:40 68 141/91 01/02/19 23:20 68 127/91 01/02/19 23:00 64 18 144/92 96 01/02/19 22:16 98.6 F 70 14 158/96 95 01/02/19 21:40 78 190/113 95 01/02/19 21:30 72 189/129 95 01/02/19 21:20 68 192/126 96 01/02/19 21:10 74 197/122 95 01/02/19 21:04 74 18 184/135 95 01/02/19 20:00 92 19 184/126 96 01/02/19 19:39 75 178/117 96 01/02/19 18:11 62 17 188/120 95 01/02/19 17:11 97.8 F 60 16 225/137 97 Intake and Output 01/02/19 01/03/19 01/03/19 22:59 06:59 14:59 Intake Total 240 Output Total 300 175 Balance -300 65 Intake: Oral 240 Output: Urine 300 175 Other: Voiding Method Urinal # Voids 1 1 Weight 104.326 kg 108 kg PHYSICAL EXAMINATION: GENERAL: 68-year-old gentleman in no acute distress at the time of my examination HEENT: Head is atraumatic, normocephalic. Pupils equal, round. Sclera anicteric. Conjunctiva are clear. Mucous membranes of the mouth are moist. Neck is supple. There is no elevated jugular venous pressure. No carotid bruit is heard. HEART EXAMINATION: Heart S1, S2 normal. No murmur or gallop heard. CHEST EXAMINATION: Lungs are clear to auscultation and precussion. No chest wall tenderness is noted on palpation or with deep breathing. ABDOMEN: Soft, nontender. Bowel sounds are heard. No organomegaly noted. EXTREMITIES: 2+ peripheral pulses with no evidence of peripheral edema and no calf tenderness noted. NEUROLOGIC patient is awake, alert and oriented 3 . . Results 01/02/19 18:45 01/02/19 18:45 Cardiac Enzymes 01/02/19 01/02/19 Range/Units 18:45 18:45 AST 26 (17-59) U/L Troponin I <0.012 (0.000-0.034) ng/mL Coagulation 01/02/19 Range/Units 18:45 PT 11.1 (9.0-12.0) sec APTT 25.5 (22.0-30.0) sec CBC 01/02/19 Range/Units 18:45 WBC 6.0 (3.8-10.6) k/uL RBC 4.77 (4.30-5.90) m/uL Hgb 15.4 (13.0-17.5) gm/dL Hct 45.9 (39.0-53.0) % Plt Count 229 (150-450) k/uL Comprehensive Metabolic Panel 01/02/19 Range/Units 18:45 Sodium 139 (137-145) mmol/L Potassium 4.1 (3.5-5.1) mmol/L Chloride 104 (98-107) mmol/L Carbon Dioxide 28 (22-30) mmol/L BUN 18 (9-20) mg/dL Creatinine 0.85 (0.66-1.25) mg/dL Glucose 95 (74-99) mg/dL Calcium 9.3 (8.4-10.2) mg/dL AST 26 (17-59) U/L ALT 20 L (21-72) U/L Alkaline Phosphatase 71 (38-126) U/L Total Protein 7.3 (6.3-8.2) g/dL Albumin 4.3 (3.5-5.0) g/dL Current Medications Generic Name Dose Route Start Last Admin Trade Name Freq PRN Reason Stop Dose Admin Hydralazine HCl 20 mg 01/02/19 20:47 01/02/19 21:44 Apresoline IVP 20 mg Q6HR PRN Administration Blood Pressure - High Sodium Chloride 1,000 mls @ 20 mls/hr 01/02/19 21:00 01/03/19 06:21 Saline 0.9% IV Not Given .Q24H NICHOLAS Metoprolol Tartrate 50 mg 01/02/19 21:00 01/03/19 09:02 Lopressor PO 50 mg BID NICHOLAS Administration Naloxone HCl 0.2 mg 01/02/19 20:49 Narcan IV Q2M PRN Opioid Reversal Pantoprazole Sodium 40 mg 01/03/19 07:30 01/03/19 06:20 Protonix PO 40 mg BID-W/MEALS NICHOLAS Administration Intake and Output 01/02/19 01/03/19 01/03/19 22:59 06:59 14:59 Intake Total 240 Output Total 300 175 Balance -300 65 Intake: Oral 240 Output: Urine 300 175 Other: Voiding Method Urinal # Voids 1 1 Weight 104.326 kg 108 kg 01/02/19 18:45 01/02/19 18:45 EKG Interpretations (text) EKG shows a sinus bradycardia with no acute changes. Assessment and Plan Plan: Assessment and plan #1 accelerated hypertension #2 known history of coronary artery disease with prior non-Q-wave RI and stenting of the RCA in 2016 #3 hyperlipidemia, not currently on statin #4 EtOH use #5 a GI bleed in April 2018, evidence of gastritis, mild duodenitis, nonbleeding esophageal ulcer, no active bleeding. Plan Patient's dose of beta arley has been increased to 50 twice a day is however a little on the bradycardic side, he was given labetalol twice in the emergency room as well as 2 stat doses of metoprolol, and initiated on hydralazine when necessary. We will discontinue the PRN hydralazine, decrease the metoprolol back to 25 mg by mouth twice a day, add an angiotensin arley to the patient's medication, and if necessary some Norvasc. Add a statin, and put the patient on a baby aspirin daily. We will also obtain an echocardiogram with Doppler study. Other recommendations to follow. DNP note has been reviewed, I agree with a documented findings and plan of care. Patient was seen and examined.
[2019-01-03] MEDS ORDERED: LOSARTAN 25 MG TAB PO SCH (10:00)
[2019-01-03] MEDS ORDERED: LOSARTAN 50 MG TAB PO SCH (11:06)
[2019-01-03] MEDS: ATORVASTATIN 80 MG TAB PO SCH ×2 (11:33→11:36)
--- NOTE | 2019-01-03 11:44 | ECHOF ---
Referral Reason:htn MEASUREMENTS -------- HEIGHT: 193.0 cm WEIGHT: 108.0 kg BP: 153/90 RVIDd: 3.8 cm (< 3.3) IVSd: 2.3 cm (0.6 - 1.1) LVIDd: 3.9 cm (3.9 - 5.3) LVPWd: 2.2 cm (0.6 - 1.1) IVSs: 2.5 cm LVIDs: 2.5 cm LVPWs: 2.0 cm Ao Diam: 3.9 cm (2.0 - 3.7) AV Cusp: 2.4 cm (1.5 - 2.6) LA Diam: 4.5 cm (2.7 - 3.8) MV EXCURSION: 16.486 mm (> 18.000) MV EF SLOPE: 59 mm/s (70 - 150) EPSS: 0.6 cm MV E Gurdeep: 0.44 m/s MV DecT: 210 ms MV A Gurdeep: 0.59 m/s MV E/A Ratio: 0.74 AR PHT: 419 ms RAP: 15.00 mmHg RVSP: 40.22 mmHg FINDINGS -------- Sinus rhythm. This was a technically adequate study. The left ventricular size is normal. There is severe concentric left ventricular hypertrophy. Ove rall left ventricular systolic function is normal with, an EF between 55 - 60 %. The right ventricle is mild to moderately enlarged. The left atrial size is normal. The right atrial size is normal. The aortic valve is trileaflet and appears structurally normal. Trace amount of aortic regurgitatio n. The mitral valve is normal. Mild mitral regurgitation is present. The tricuspid valve appears structurally normal. Mild tricuspid regurgitation present. Right vent ricular systolic pressure is normal at < 35 mmHg. There is mild pulmonary hypertension. The right ventricular systolic pressure, as measured by Doppler, is 40.22mmHg. There is no pulmonic regurgitation present. The aortic root size is normal. The inferior vena cava is mildly dilated. There is no pericardial effusion. CONCLUSIONS -------- 1. Sinus rhythm. 2. This was a technically adequate study. 3. The left ventricular size is normal. 4. There is severe concentric left ventricular hypertrophy. 5. Overall left ventricular systolic function is normal with, an EF between 55 - 60 %. 6. The right ventricle is mild to moderately enlarged. 7. The left atrial size is normal. 8. The right atrial size is normal. 9. The aortic valve is trileaflet and appears structurally normal. 10. Trace amount of aortic regurgitation. 11. The mitral valve is normal. 12. Mild mitral regurgitation is present. 13. The tricuspid valve appears structurally normal. 14. Mild tricuspid regurgitation present. 15. There is mild pulmonary hypertension. 16. The right ventricular systolic pressure, as measured by Doppler, is 40.22mmHg. 17. There is no pulmonic regurgitation present. 18. The aortic root size is normal. 19. The inferior vena cava is mildly dilated. 20. There is no pericardial effusion. GRANULATOR OPERATOR: Linda Segura RDCS
[2019-01-03 16:39] VITALS: BP 161/95; PULSE 59
[2019-01-03] MEDS ORDERED: METOPROLOL TARTRATE 25 MG TAB PO SCH (21:00)
--- NOTE | 2019-01-04 01:04 | P.HPIM ---
History of Present Illness H&P Date: 01/03/19 Chief Complaint: High blood pressure Presenting complaint: Hypertension History of present complaint: This is a very pleasant 68 year old patient of Dr. Demetrius Dillon. Chronic stable medical conditions include coronary artery disease with stent, hyperlipidemia hernia, peptic ulcer disease. Patient for 2 months has been feeling a little bit out of sorts. Some episodes of sweating. Feeling flushed. Patient went down to [facility] to get his medications filled up. That he took his blood pressure came to be above 200 systolic. Decided to come down to the ER. There was no chest pain no palpitation. Patient is rather active. He did tell me that he had been lifting heavy bags. No chest pain. No palpitation. Patient in the ER was given IV labetalol and also was given IV hydralazine. Admitted for the same. Review of systems: GEN.: Tired EYES: None HEENT: None NECK: None RESPIRATORY: None CARDIOVASCULAR: As above GASTROINTESTINAL: None GENITOURINARY: None MUSCULOSKELETAL: None LYMPHATICS: None HEMATOLOGICAL: None PSYCHIATRY: None NEUROLOGICAL: None Social history: Retired. No smoking. Drinks 2 cocktails at night. Lives with girlfriend. Family history: Leukemia Physical examination: VITAL SIGNS: 97.8, 60, 16, 2 25 x 1 37, 97% on room air GENERAL: Average built, sitting up, not in distress. EYES: Pupils equal. Conjunctiva normal. HEENT: External appearance of nose and ears normal, oral cavity grossly normal. NECK: JVD not raised; masses not palpable. HEART: First and second heart sounds are normal; no edema. LUNGS: Respiratory rate normal; clear to auscultation. ABDOMEN: Soft, nontender, liver spleen not palpable, no masses palpable. PSYCH: Alert and oriented x3; mood and affect normal. NEUROLOGICAL: Cranial nerves grossly intact; no facial asymmetry, power and sensation grossly intact. LYMPHATICS: No lymph nodes palpable in the axilla and neck INVESTIGATIONS, reviewed in the clinical context: White count 6, hemoglobin 15.4, potassium 4.1, creatinine 0.85 Troponin negative EKG tracing personally reviewed by me shows normal sinus rhythm Checks x-ray film personally reviewed by me shows some cardiomegaly Assessment: -Essential Hypertensive urgency, POA -Coronary artery disease with a prior history of stent -Hyperlipidemia -Hiatal hernia Plan: Patient admitted. Blood pressure medication being adjusted. 2-D echocardiogram was ordered by cardiology. Patient's blood pressure started to come down. Past Medical History Past Medical History: Hyperlipidemia, Hypertension Additional Past Medical History / Comment(s): KIDNEY STONES 20 YEARS AGO, ble eding ulcer History of Any Multi-Drug Resistant Organisms: None Reported Past Surgical History: Adenoidectomy, Heart Catheterization With Stent, Tonsi llectomy Additional Past Surgical History / Comment(s): DENTAL IMPLANT, DEVIATED SEPTUM, RT INGUINAL HERNIA Past Anesthesia/Blood Transfusion Reactions: No Reported Reaction Date of Last Stent Placement:: 04/2016 Past Psychological History: No Psychological Hx Reported Additional Psychological History / Comment(s): HE IS RETIRED FROM [employer] AND HAS IN THE PAST WORKED IN [employer] WELL. NO EXPERINCE.PT IS INDEPENDANT WHEN UP. Smoking Status: Former smoker Past Alcohol Use History: Daily Additional Past Alcohol Use History / Comment(s): SMOKED OFF AND ON IN HIS 20'S THEN QUIT. INHIS MID 40'S OCC SMOKED SMALL CIGARS THEN QUIT. PT STATED HE HAS 2 COKTAILS DAILY. Past Drug Use History: None Reported - Past Family History Mother Family Medical History: Cancer Additional Family Medical History / Comment(s): LEUKEMIA Father Family Medical History: Renal Disease Additional Family Medical History / Comment(s): BOWEL AND BLADDER PROBLEMS Medications and Allergies Home Medications Medication Instructions Recorded Confirmed Type Metoprolol Tartrate [Lopressor] 25 mg PO BID-W/MEALS 01/02/19 01/02/19 History Pantoprazole [Protonix] 40 mg PO BID-W/MEALS 01/02/19 01/02/19 History Aspirin 81 mg PO DAILY chew 01/03/19 Rx Chlorthalidone 25 mg PO DAILY #30 tab 01/03/19 Rx Losartan [Cozaar] 50 mg PO HS #30 tab 01/03/19 Rx Rosuvastatin Calcium [Crestor] 10 mg PO DAILY #30 tab 01/03/19 Rx Allergies Allergy/AdvReac Type Severity Reaction Status Date / Time No Known Allergies Allergy Verified 01/02/19 17:15 Physical Exam Vitals: Vital Signs Temp Pulse Pulse Resp BP BP Pulse Ox 01/03/19 08:20 98 F 67 17 153/90 96 01/03/19 04:00 98.0 F 69 17 160/94 95 01/03/19 00:03 98.6 F 63 18 169/107 95 01/03/19 00:00 63 18 01/02/19 23:40 68 141/91 01/02/19 23:20 68 127/91 01/02/19 23:00 64 18 144/92 96 01/02/19 22:16 98.6 F 70 14 158/96 95 01/02/19 21:40 78 190/113 95 01/02/19 21:30 72 189/129 95 01/02/19 21:20 68 192/126 96 01/02/19 21:10 74 197/122 95 01/02/19 21:04 74 18 184/135 95 01/02/19 20:00 92 19 184/126 96 01/02/19 19:39 75 178/117 96 01/02/19 18:11 62 17 188/120 95 01/02/19 17:11 97.8 F 60 16 225/137 97 Intake and Output 01/02/19 01/03/19 01/03/19 22:59 06:59 14:59 Intake Total 240 Output Total 300 175 Balance -300 65 Intake: Oral 240 Output: Urine 300 175 Other: Voiding Method Urinal # Voids 1 1 Weight 104.326 kg 108 kg Results CBC & Chem 7: 01/02/19 18:45 01/02/19 18:45 Labs: Abnormal Lab Results - Last 24 Hours (Table) 01/02/19 Range/Units 18:45 ALT 20 L (21-72) U/L Thrombosis Risk Factor Assmnt - Choose All That Apply Any of the Below Risk Factors Present?: Yes Each Factor Represents 1 point: Obesity (BMI >25) Each Risk Factor Represents 2 Points: Age 61-74 years Thrombosis Risk Factor Assessment Total Risk Factor Score: 3 Thrombosis Risk Factor Assessment Level: Moderate Risk
--- NOTE | 2019-01-04 01:07 | P.DS ---
Providers Date of admission: 01/02/19 20:50 Expected date of discharge: 01/03/19 Attending physician: Jose Rodriguez Consults: 01/02/19 20:49 Consult Physician Urgent Consulting Provider: Ines Royal Consult Reason/Comments: Hypertensive urgency and exertional dyspnea Do you want consulting provider notified?: Yes Primary care physician: Demetrius Mcnealrien [facility] Course: Hospital course: This is a very pleasant 68 year old patient of Dr. Demetrius Dillon. Chronic stable medical conditions include coronary artery disease with stent, hyperlipidemia hernia, peptic ulcer disease. Patient for 2 months has been feeling a little bit out of sorts. Some episodes of sweating. Feeling flushed. Patient went down to [facility] to get his medications filled up. That he took his blood pressure came to be above 200 systolic. Decided to come down to the ER. There was no chest pain no palpitation. Patient is rather active. He did tell me that he had been lifting heavy bags. No chest pain. No palpitation. Patient in the ER was given IV labetalol and also was given IV hydralazine. Admitted for the hypertensive urgency. Medications were adjusted. Blood pressure came down nicely before discharge.. Consultation: Dr. Royal from cardiology Physical examination: VITAL SIGNS: 98, 59, 17, 161, 95, GENERAL: Average built, sitting up, not in distress. EYES: Pupils equal. Conjunctiva normal. HEENT: External appearance of nose and ears normal, oral cavity grossly normal. NECK: JVD not raised; masses not palpable. HEART: First and second heart sounds are normal; no edema. LUNGS: Respiratory rate normal; clear to auscultation. ABDOMEN: Soft, nontender, liver spleen not palpable, no masses palpable. PSYCH: Alert and oriented x3; mood and affect normal. INVESTIGATIONS, reviewed in the clinical context: White count 6, hemoglobin 15.4, potassium 4.1, creatinine 0.85 Troponin negative EKG tracing personally reviewed by me shows normal sinus rhythm Checks x-ray film personally reviewed by me shows some cardiomegaly 2-D echocardiogram-EF 55-60%. Severe concentric left ventricular hypertrophy Discharge diagnosis: -Essential Hypertensive urgency, POA -Coronary artery disease with a prior history of stent -Hyperlipidemia -Hiatal hernia -Hypertensive heart disease Disposition: Home Patient Condition at Discharge: Stable Plan - Discharge Summary New Discharge Prescriptions: New Aspirin 81 mg PO DAILY chew Chlorthalidone 25 mg PO DAILY #30 tab Losartan [Cozaar] 50 mg PO HS #30 tab Rosuvastatin Calcium [Crestor] 10 mg PO DAILY #30 tab Continue Pantoprazole [Protonix] 40 mg PO BID-W/MEALS Metoprolol Tartrate [Lopressor] 25 mg PO BID-W/MEALS Discharge Medication List Metoprolol Tartrate [Lopressor] 25 mg PO BID-W/MEALS 01/02/19 [History] Pantoprazole [Protonix] 40 mg PO BID-W/MEALS 01/02/19 [History] Aspirin 81 mg PO DAILY chew 01/03/19 [Rx] Chlorthalidone 25 mg PO DAILY #30 tab 01/03/19 [Rx] Losartan [Cozaar] 50 mg PO HS #30 tab 01/03/19 [Rx] Rosuvastatin Calcium [Crestor] 10 mg PO DAILY #30 tab 01/03/19 [Rx] Follow up Appointment(s)/Referral(s): Demetrius Foy DO [Primary Care Provider] - 3 Days (Office is closed. Please call to make appointment) Bear Albrecht MD [STAFF PHYSICIAN] - 01/16/19 12:45 pm (Tuesday) Patient Instructions/Handouts: Hypertensive Crisis (DC) Activity/Diet/Wound Care/Special Instructions: daily BP check at home. keep log Discharge Disposition: HOME SELF-CARE
[2019-01-04] MEDS ORDERED: LOSARTAN 50 MG TAB PO SCH (09:00)
[2019-01-04] MEDS ORDERED: ASPIRIN 81 MG PO SCH (09:00)
== END 2019-01-03 17:21 | disposition home or self-care (01) | DRG 305 ==
LOC: EC 16:31 → 3SCARD 20:50
PROVIDERS: ADMIT Hospitalist; ATTEND Hospitalist
DX: I16.0 Hypertensive urgency (principal); E78.5 Hyperlipidemia, unspecified; I11.9 Hypertensive heart disease without heart failure; I25.10 Atherosclerotic heart disease of native coronary artery without angina pectoris; I25.2 Old myocardial infarction; Z87.11 Personal history of peptic ulcer disease; K44.9 Diaphragmatic hernia without obstruction or gangrene; Z79.82 Long term (current) use of aspirin; Z79.899 Other long term (current) drug therapy; Z80.6 Family history of leukemia; Z87.442 Personal history of urinary calculi; Z87.891 Personal history of nicotine dependence; Z95.5 Presence of coronary angioplasty implant and graft; Z84.1 Family history of disorders of kidney and ureter
CPT/HCPCS: 36415; 71046; 80053; 81003; 82550; 83735; 84484; 85025; 85610; 85730; 93005; 93306; 96374; 96375; 96376; 99284

== ENCOUNTER → 2022-08-13 | Day surgery (SDC) | payer MEDICARE ==
[2022-08-11 14:27] VITALS: BMI 25.9
[~2022-08-13] MED LIST: BENZOCAINE SPRAY 1 CAN TOPICAL ONE; LIDOCAINE 2% INJ 20 MG/ML (2 ML VIAL) ONE; LOSARTAN 50 MG TAB PO STA; METOPROLOL TARTRATE 5 MG/5 ML VIAL IVP ONE; PROPOFOL 10 MG/ML 20 ML VIAL IV ONE; SODIUM CHLORIDE 0.9% 1,000 ML IV SCH
[2022-08-13 09:43] VITALS: TEMP 97.3
[2022-08-13] MEDS: LACTATED RINGERS 1,000 ML IV SCH ×2 (09:48→11:27)
[2022-08-13 09:59] LABS: African American GFR (CKD) >90 (>60 ml/min/1.73 sqM); Anion Gap 6 mmol/L; Blood Urea Nitrogen 20 mg/dL (9-20); Calcium 8.7 mg/dL (8.4-10.2); Carbon Dioxide 25 mmol/L (22-30); Chloride 105 mmol/L (98-107); Glucose 115 mg/dL (74-99); Non-African American GFR(CKD) >90 (>60 ml/min/1.73 sqM); Potassium 4.2 mmol/L (3.5-5.1); Sodium 136 mmol/L (137-145)
[2022-08-13 12:33] VITALS: RESP 16
[2022-08-13 13:50] VITALS: BP 136/73; PULSE 78
--- NOTE | 2022-08-14 03:49 | ECHOT ---
TRANSESOPHAGEAL ECHOCARDIOGRAM PROCEDURES PERFORMED: 1. Transesophageal echocardiogram. 2. Cardioversion. TRANSESOPHAGEAL ECHOCARDIOGRAM INDICATION: Persistent atrial fibrillation to rule out intracardiac thrombus. PROCEDURE NOTE: After obtaining informed consent, transesophageal echocardiogram was performed in left lateral position using an Omniplane probe. Local and IV sedation were obtained by the rotary slicing machine operator. FINDINGS: 1. There is no intracardiac thrombus within the left atrial appendage, left atrium, right atrium, right ventricle, or left ventricle. 2. Left ventricle has normal size and systolic function. 3. Right atrium and right ventricle seemed within normal limits. 4. Left atrium appears mildly enlarged. 5. There is mild prolapse of the posterior mitral leaflet with moderate mitral regurgitation. Aortic valve is a 3-leaflet valve. There is mild aortic regurgitation. 6. Tricuspid valve appears normal. 7. Interatrial septum: There is no evidence of [id number] shunt by color-flow Doppler or [id number] shunt by agitated saline contrast study. CONCLUSIONS: 1. No intracardiac thrombus. 2. Moderate mitral regurgitation. CARDIOVERSION NOTE: INDICATION: Persistent atrial fibrillation. PROCEDURE NOTE: After obtaining informed consent, after making sure that the patient does not have a thrombus with DOE and ensuring that is adequately anticoagulated with Eliquis the patient underwent cardioversion with 150 joules of synchronized direct current converted to sinus rhythm following a single shock and will continue current medication. MMODL / IJN: [id number] /
== END ==
LOC: OR 09:01
PROVIDERS: ATTEND Internal Medicine Cardiovascular Disease
DX: I48.19 Other persistent atrial fibrillation (principal); I34.0 Nonrheumatic mitral (valve) insufficiency; I10 Essential (primary) hypertension; E78.5 Hyperlipidemia, unspecified; N20.0 Calculus of kidney; K21.9 Gastro-esophageal reflux disease without esophagitis; F17.210 Nicotine dependence, cigarettes, uncomplicated; Z79.82 Long term (current) use of aspirin; Z79.01 Long term (current) use of anticoagulants; Z79.899 Other long term (current) drug therapy; Z90.89 Acquired absence of other organs; Z90.49 Acquired absence of other specified parts of digestive tract
CPT/HCPCS: 93312; 93320; 93325; 92960; 80048; J2704; J2001

== ENCOUNTER → 2023-10-12 | Outpatient (CLI) | payer MEDICARE ==
[2023-10-12 18:32] LABS: Basophils # (A) 0.03 X 10*3/uL (0.00-0.10); Basophils % (A) 0.4 %; Eosinophils # (A) 0.32 X 10*3/uL (0.04-0.35); Eosinophils % (A) 4.5 %; HGB 14.9 g/dL (13.0-17.0); Lymphocytes # (A) 2.08 X 10*3/uL (0.90-5.00); Lymphocytes % (A) 29.2 %; MCH 33.4 pg (27.0-32.0); MCHC 33.9 g/dL (32.0-37.0); MCV 98.7 FL (80.0-97.0); Mean Platelet Volume 11.3 FL (9.5-12.2); Monocytes # (A) 0.68 X 10*3/uL (0.20-1.00); Monocytes % (A) 9.5 %; NRBC Per 100 WBC 0 X 10*3/uL (0.00-0.01); Neutrophils # (A) 3.98 X 10*3/uL (1.80-7.70); Neutrophils % (A) 55.8 %; Platelet Count 240 X 10*3/uL (140-440); RBC 4.46 X 10*6/uL (4.40-5.60); RDW 12.7 % (11.5-14.5); WBC 7.13 X 10*3/uL (4.50-10.00)
[2023-10-12 19:43] LABS: Anion Gap 12.3 mmol/L (4.00-12.00); Carbon Dioxide 25.7 mmol/L (21.6-31.8); Potassium 4.5 mmol/L (3.5-5.5)
== END | disposition home or self-care (01) ==
LOC: LABPAT 15:17
PROVIDERS: ATTEND Orthopaedic Surgery
DX: Z01.812 Encounter for preprocedural laboratory examination (principal); M23.92 Unspecified internal derangement of left knee
CPT/HCPCS: 80051; 85025

== ENCOUNTER 2023-10-27 12:47 | Day surgery (SDC) | payer MEDICARE ==
--- NOTE | 2023-10-20 08:37 | HP ---
HISTORY AND PHYSICAL DATE OF SCHEDULED SURGERY: . HISTORY OF PRESENT ILLNESS: Lazaro Shepard is a 73-year-old gentleman seen with progressive left knee pain. We discussed options regarding treatment. He elected to proceed with left knee arthroscopy. Consent was obtained. PAST MEDICAL HISTORY: Hypertension. SURGICAL HISTORY: Herniorrhaphy, cardiac catheterization with stent. DAILY MEDICATIONS: 1. Amlodipine. 2. Atorvastatin. 3. Eliquis. 4. Losartan. 5. Metoprolol. ALLERGIES: None. SOCIAL HISTORY: He denies tobacco use. PHYSICAL EVALUATION OF THE LEFT KNEE: Range of motion is 0 to 125 degrees. Moderate effusion. Tenderness, medial joint line. Positive medial Nallely's. Ligaments stable. Hip rotation without pain. Distal neurovascular exam intact. IMAGING: Left knee radiographs reveal moderate osteoarthritis involving the medial compartment. MRI left knee revealed medial meniscal tear. Large Montoya cyst. IMPRESSION: 1. Internal derangement of left knee with medial meniscal tear. 2. Hypertension. 3. Hyperlipidemia. 4. Cardiovascular disease. PLAN: Left knee arthroscopy with partial medial meniscectomy and debridement. MMODL / IJN: [id number] /
--- NOTE | 2023-10-26 22:49 | HP ---
HISTORY AND PHYSICAL DATE OF SCHEDULED SURGERY: 10/13/2023. HISTORY OF PRESENT ILLNESS: Lazaro Shepard is a 73-year-old gentleman who is seen with progressive left knee pain. We discussed options regarding treatment. He elected to proceed with left knee arthroscopy. Consent was obtained. PAST MEDICAL HISTORY: Hypertension, hyperlipidemia. PAST SURGICAL HISTORY: Herniorrhaphy, stent placement. DAILY MEDICATIONS: 1. Amlodipine. 2. Atorvastatin. 3. Eliquis. 4. Hydrochlorothiazide. 5. Losartan. 6. Metoprolol. ALLERGIES: None. SOCIAL HISTORY: He denies tobacco use. PHYSICAL EVALUATION OF LEFT KNEE: Range of motion 0 to 125 degrees. Moderate effusion. Tenderness to medial joint line. Positive medial Nallely's. Ligaments stable. Hip rotation without pain. Distal neurovascular exam is intact. RADIOGRAPHS: Left knee revealed moderate osteoarthritis. MRI left knee revealed a medial meniscal tear, large Montoya cyst, and effusion. IMPRESSION: 1. Internal derangement of left knee with medial meniscal tear. 2. Hypertension. 3. Hyperlipidemia. 4. Cardiovascular disease. PLAN: Left knee arthroscopy with partial medial meniscectomy and debridement. MMODL / IJN: [id number] /
[~2023-10-27 12:47] MED LIST changes: -BENZOCAINE SPRAY 1 CAN TOPICAL ONE; +HYDROmorphone 0.5 MG/0.5 ML SYRINGE IVP PRN; +LIDOCAINE 1% (10MG/ML) FOR IV START INTRADERMA PRN; -LIDOCAINE 2% INJ 20 MG/ML (2 ML VIAL) ONE; -LOSARTAN 50 MG TAB PO STA; -METOPROLOL TARTRATE 5 MG/5 ML VIAL IVP ONE; -PROPOFOL 10 MG/ML 20 ML VIAL IV ONE; -SODIUM CHLORIDE 0.9% 1,000 ML IV SCH
[2023-10-27] MEDS: ONDANSETRON 4 MG/2 ML VIAL IVP ONE (13:43)
[2023-10-27] MEDS: DEXAMETHASONE SOD PHOSPHATE 4 MG/ML 1 ML VIAL IV ONE (13:43)
[2023-10-27] MEDS: LACTATED RINGERS 1,000 ML IV SCH (13:43)
[2023-10-27] MEDS: IV FLUID CONTINUATION 1,000 ML IV ONE (13:45)
[2023-10-27] MEDS ORDERED: HYDROmorphone (PF) 1 MG/ML ONE (14:05)
[2023-10-27] MEDS ORDERED: LIDOCAINE 1% INJ 10MG/ML (20 ML MDV) ONE (14:05)
[2023-10-27] MEDS ORDERED: fentaNYL (PF) 50 MCG/ML 2 ML AMP ONE (14:05)
[2023-10-27] MEDS ORDERED: MIDAZOLAM 2 MG/2 ML VIAL ONE (14:05)
[2023-10-27] MEDS ORDERED: PROPOFOL 10 MG/ML 20 ML VIAL IV ONE (14:05)
[2023-10-27] MEDS: BUPIVACAINE (PF) 0.5% 30 ML VIAL INTRAARTIC ONE (14:10)
[2023-10-27 14:53] VITALS: TEMP 96.8
--- NOTE | 2023-10-27 14:54 | P.OP ---
Date of Procedure: 10/27/23 Preoperative Diagnosis: Internal derangement left knee Postoperative Diagnosis: 1. Tear medial and lateral meniscus left knee 2. Grade IV chondromalacia medial femoral condyle left knee 3. Reactive synovitis medial, lateral and suprapatellar compartments left knee 4. Grade II chondromalacia patella left knee Procedure(s) Performed: 1. Arthroscopic partial medial and lateral meniscectomy left knee 2. Arthroscopic microfracture medial femoral condyle left knee 3. Arthroscopic partial synovectomy medial, lateral and suprapatellar compartments left knee 4. Arthroscopic chondroplasty patella left knee Anesthesia: MORROA, local Surgeon: Supa Hall Estimated Blood Loss (ml): 7 Pathology: none sent Condition: stable Disposition: PACU Indications for Procedure: 73-year-old patient seen with progressive left knee pain. After treatment options were discussed, he elected to proceed with arthroscopy. Operative Findings: See description of procedure Description of Procedure: Patient was taken to the operative suite. Patient underwent a general anesthetic by the department of anesthesia. Patient was given preoperative antibiotics. The left lower extremity was placed in a well-padded arthroscopic leg dobson. The left leg was prepped and draped in the normal sterile orthopedic fashion. A lateral parapatellar and suprapatellar incision was made. Trochars were inserted. Arthroscopy was initiated. Suprapatellar pouch revealed diffuse thick reactive synovitis. The patellofemoral joint appeared to articulate congruently. There was grade II chondromalacia of the patella with some osteochondral flap tears. The scope was guided into the medial gutter. No loose bodies or plica were identified. The scope was then guided into the medial compartment. A medial parapatellar incision was made. Trocar inserted followed by probe. There was a radial tear posterior horn medial meniscus. There were grade III/IV chondromalacia changes of the medial femoral condyle with some osteochondral flap tears present. There was thick reactive synovitis anteriorly. I performed a partial medial meniscectomy getting down to stable meniscal tissue. I performed a chondroplasty of the medial femoral condyle ge tting down to stable osteochondral tissue. I performed a partial synovectomy decompressing the thick reactive synovitis anteriorly. I did note an area of grade IV chondromalacia/exposed bone on the medial femoral condyle measuring just under centimeter. I introduced a microfracture awl and I performed a microfracture to the area of exposed bone penetrating the bone with resultant bleeding at the microfracture site. The residual meniscus was probed and was found to be stable. The residual osteochondral surface was stable. There was good decompression of the synovitis. Scope and probe were then guided into the intercondylar notch. Cruciates were identified, probed and found to be stable. The scope and probe were then guided into lateral compartment. There was a radial tear involving the mid body lateral meniscus. There were grade I chondromalacia changes lateral compartment with no tears. There was thick reactive synovitis anteriorly. I performed a partial lateral meniscectomy getting down to stable meniscal tissue. I performed a partial synovectomy decompressing the reactive synovitis. The residual meniscus was stable. There was good decompression of the synovitis. The scope was in guided back into the suprapatellar compartment. I introduced a motorized shaver into the suprasellar compartment. I performed a chondroplasty of the patella getting down to stable osteochondral tissue. I performed a partial synovectomy decompressing the reactive synovitis. The shaver was now removed. The residual osteochondral surface of the patella was stable. There was good decompression of the synovitis. I took 1 more look around the entire knee, no residual debris. Instruments were now removed from the joint. The joint was infiltrated with .25% Marcaine. Steri-Strips were applied to the portal sites. Sterile dressings were applied. The patient was placed into a JOSE RAUL hose. No tourniquet was utilized. The patient was awakened, transferred to a bed and taken to recovery stable satisfactory condition.
[2023-10-27 15:31] VITALS: RESP 18
[2023-10-27 16:57] VITALS: BP 142/91; PULSE 80
== END 2023-10-27 16:36 | disposition home or self-care (01) ==
LOC: OR 12:47
PROVIDERS: ATTEND Orthopaedic Surgery
DX: S83.282A Other tear of lateral meniscus, current injury, left knee, initial encounter (principal); S83.242A Other tear of medial meniscus, current injury, left knee, initial encounter; M22.42 Chondromalacia patellae, left knee; I10 Essential (primary) hypertension; I25.10 Atherosclerotic heart disease of native coronary artery without angina pectoris; E78.5 Hyperlipidemia, unspecified; M65.162 Other infective (teno)synovitis, left knee; I48.91 Unspecified atrial fibrillation; L98.499 Non-pressure chronic ulcer of skin of other sites with unspecified severity; K21.9 Gastro-esophageal reflux disease without esophagitis; Z79.899 Other long term (current) drug therapy; Z79.01 Long term (current) use of anticoagulants; Z95.5 Presence of coronary angioplasty implant and graft; Z98.890 Other specified postprocedural states; X58.XXXA Exposure to other specified factors, initial encounter
CPT/HCPCS: 29880; 29879; J1100; J0690; J2405; J0665

== ENCOUNTER 2024-08-08 05:57 | Day surgery (SDC) | payer MEDICARE ==
[2024-08-07 10:31] VITALS: BMI 27.1
[~2024-08-08 05:57] MED LIST changes: -HYDROmorphone 0.5 MG/0.5 ML SYRINGE IVP PRN; +LACTATED RINGERS 1,000 ML IV SCH; -LIDOCAINE 1% (10MG/ML) FOR IV START INTRADERMA PRN
[2024-08-08] MEDS: IV FLUID CONTINUATION 1,000 ML IV ONE (06:24)
[2024-08-08 06:45] VITALS: RESP 16; TEMP 97.8
[2024-08-08] MEDS ORDERED: PROPOFOL 10 MG/ML 20 ML VIAL IV ONE (07:00)
[2024-08-08] MEDS ORDERED: LIDOCAINE 1% INJ 10MG/ML (20 ML MDV) ONE (07:00)
--- NOTE | 2024-08-08 07:22 | P.PCN ---
Date of Procedure: 08/08/24 Procedure(s) Performed: Brief history: Patient is a pleasant 73-year-old white female scheduled for an elective upper endoscopy as well as colonoscopy as a part of evaluation of GERD/Hurst's esophagus and screening for history of colon polyps. Last colonoscopy was 5 years ago and was noted to have an adenoma. Procedure performed: Esophagogastroduodenoscopy with biopsy Colonoscopy with snare polypectomy Preoperative diagnosis: GERD/Hurst's esophagus Screening for history of colon polyps Anesthesia: MAC Procedure: After informed consent was obtained from the patient was brought into the endoscopy unit and IV sedation was administered by anesthesia under continuous monitoring. Initially upper endoscopy was done. The Olympus GF 160 video endoscope was inserted inserted into the mouth and esophagus intubated without any difficulty and was gradually advanced into the stomach and duodenum and carefully examined. The bulb and second part of the duodenum appeared normal. The scope was then withdrawn into the stomach adequately insufflated with air and upon careful examination the antrum and body, cardia and fundus appeared normal. The scope was then withdrawn into the esophagus. Small hiatal hernia noted. The GE junction was located at 43 cm to the incisors. There was short segment of Hurst's esophagus extending from 41 to 43 cm from the incisors and multiple biopsies were done from this area. There were no erythema erosions or ulcerations. Rest of the esophagus appeared normal. Patient tolerated the procedure well. At this time the patient continued to remain sedation. Initial digital rectal examination was normal. Olympus CF 160 video colonoscope was then inserted into the rectum and gradually advanced to the cecum without any difficulty. Careful examination was performed as the scope was gradually being withdrawn. The prep was excellent. The cecum had a 1 cm broad-based polyp removed by cold snare polypectomy. Rest of the, ascending colon, transverse colon, descending colon, sigmoid colon and rectum appeared normal. Scattered sigmoid diverticulosis. Retroflexion was performed in the rectum and small internal hemorrhoids were noted. Patient tolerated the procedure well. Impression: 1. Upper endoscopy revealed small hiatal hernia and Hurst's esophagus extending from 41 to 43 cm from the incisors status post multiple biopsies colonoscopy revealed 2. Colonoscopy revealed 1 cm cecal polyp status post snare polypectomy, scattered sigmoid diverticulosis and small internal hemorrhoids. Recommendations: Findings of this examination were discussed with the patient as well as his family. He was advised to follow-up with the biopsy results. If the biopsy reveals in the Hurst's esophagus he can have repeat upper endoscopy in 3 years a. Recommend a repeat colonoscopy in 3 years based on biopsy results
[2024-08-08 07:43] VITALS: BP 111/75; PULSE 83
== END 2024-08-08 08:33 | disposition home or self-care (01) ==
LOC: ORWHC2ENDO 05:57
PROVIDERS: ATTEND Internal Medicine Gastroenterology
DX: K22.70 Barrett's esophagus without dysplasia (principal); K21.00 Gastro-esophageal reflux disease with esophagitis, without bleeding; D12.0 Benign neoplasm of cecum; K44.9 Diaphragmatic hernia without obstruction or gangrene; K57.30 Diverticulosis of large intestine without perforation or abscess without bleeding; Z86.0101 Personal history of adenomatous and serrated colon polyps; K64.8 Other hemorrhoids
CPT/HCPCS: 45385; 43239; J2003; J2704; 88305; 88342